=== PATIENT | male | born 1950 | race African-American/Black ===

== ENCOUNTER → 2017-01-03 | Outpatient (CLI) | payer MEDICAID ==
[2017-01-03 10:47] LABS: Basophils % (A) 1 %; CH 27.6; CHCM 31.9; Eosinophils # (A) 0.1 k/uL (0-0.7); Eosinophils % (A) 3 %; HCT 44.9 % (39.0-53.0); HDW 3.07; HGB 14.6 gm/dL (13.0-17.5); Hypochromasia Slight; Luc # (Auto) 0.18; Luc % (Auto) 4; Lymphocytes # (A) 1.7 k/uL (1.0-4.8); Lymphocytes % (A) 37 %; MCH 28.2 pg (25.0-35.0); MCHC 32.5 g/dL (31.0-37.0); Mean Platelet Volume 6.9; Monocytes # (A) 0.4 k/uL (0-1.0); Monocytes % (A) 9 %; Neutrophils # (A) 2.2 k/uL (1.3-7.7); Neutrophils % (A) 47 %; RBC 5.16 m/uL (4.30-5.90); RDW 14.9 % (11.5-15.5); WBC 4.6 k/uL (3.8-10.6); WBC (Perox) 4.72
[2017-01-03 10:53] LABS: Appearance,Urine Clear (Clear); Bilirubin,Urine Negative (Negative); Glucose,Urine (UA) Negative (Negative); Ketones,Urine Negative (Negative); Leukocyte Esterase,Urine Negative (Negative); Nitrite,Urine Negative (Negative); PH, Urine 6.5 (5.0-8.0); Particle Count 1122; Protein,Urine 2+ (Negative); RBC,Urine <1 /hpf (0-5); Specific Gravity,Urine 1.015 (1.001-1.035); UA Billing (MACRO vs. MICRO) MICRO; Urobilinogen,Urine <2.0 mg/dL (<2.0)
[2017-01-03 11:02] LABS: ALT 31 U/L (21-72); AST 26 U/L (17-59); Alkaline Phosphatase 94 U/L (38-126); Anion Gap 9 mmol/L; Blood Urea Nitrogen 16 mg/dL (9-20); Calcium 9.3 mg/dL (8.4-10.2); Carbon Dioxide 28 mmol/L (22-30); Chloride 106 mmol/L (98-107); Cholesterol 294 mg/dL (<200); Creatine Kinase 136 U/L (55-170); Glucose 116 mg/dL (74-99); HDL Cholesterol 46 mg/dL (40-60); Non-African American GFR(MDRD) 57 (>60 ml/min/1.73 sqM); Potassium 4.2 mmol/L (3.5-5.1); Sodium 143 mmol/L (137-145); Total Bilirubin 0.9 mg/dL (0.2-1.3); Total Protein 7.7 g/dL (6.3-8.2); Triglycerides 139 mg/dL (<150); Uric Acid 7.5 mg/dL (3.5-8.5)
[2017-01-03 11:32] LABS: Hemoglobin A1C 5.9 % (4.2-6.1)
== END | disposition home or self-care (01) ==
LOC: LABWHC1 10:27
PROVIDERS: ATTEND Internal Medicine
DX: I10 Essential (primary) hypertension (principal); E78.5 Hyperlipidemia, unspecified; I63.9 Cerebral infarction, unspecified
CPT/HCPCS: 36415; 80053; 80061; 81001; 82550; 83036; 84439; 84443; 84550; 85025

== ENCOUNTER → 2017-07-01 | Outpatient (CLI) | payer MEDICAID ==
[2017-07-01 10:33] LABS: Anisocytosis Slight; Basophils # (A) 0.1 k/uL (0-0.2); Basophils % (A) 1 %; CH 28.9; CHCM 32.1; Eosinophils # (A) 0.1 k/uL (0-0.7); Eosinophils % (A) 3 %; HCT 46.5 % (39.0-53.0); HDW 3.02; HGB 14.8 gm/dL (13.0-17.5); Luc # (Auto) 0.13; Luc % (Auto) 3; Lymphocytes # (A) 2.2 k/uL (1.0-4.8); Lymphocytes % (A) 43 %; MCH 28.6 pg (25.0-35.0); MCHC 31.8 g/dL (31.0-37.0); MCV 90.2 fL (80.0-100.0); Mean Platelet Volume 8.1; Monocytes # (A) 0.4 k/uL (0-1.0); Monocytes % (A) 8 %; Neutrophils # (A) 2.2 k/uL (1.3-7.7); Neutrophils % (A) 43 %; RBC 5.15 m/uL (4.30-5.90); RDW 16.3 % (11.5-15.5); WBC 5.1 k/uL (3.8-10.6); WBC (Perox) 5.07
[2017-07-01 10:43] LABS: Appearance,Urine Clear (Clear); Bilirubin,Urine Negative (Negative); Glucose,Urine (UA) Negative (Negative); Ketones,Urine Negative (Negative); Leukocyte Esterase,Urine Negative (Negative); Nitrite,Urine Negative (Negative); PH, Urine 5.5 (5.0-8.0); Particle Count 789; Protein,Urine 1+ (Negative); RBC,Urine <1 /hpf (0-5); Specific Gravity,Urine 1.013 (1.001-1.035); UA Billing (MACRO vs. MICRO) MICRO; Urobilinogen,Urine <2.0 mg/dL (<2.0); WBC,Urine 1 /hpf (0-5)
[2017-07-01 10:54] LABS: ALT 33 U/L (21-72); AST 28 U/L (17-59); Alkaline Phosphatase 103 U/L (38-126); Anion Gap 9 mmol/L; Blood Urea Nitrogen 15 mg/dL (9-20); Calcium 9.3 mg/dL (8.4-10.2); Carbon Dioxide 26 mmol/L (22-30); Chloride 105 mmol/L (98-107); Cholesterol 306 mg/dL (<200); Creatine Kinase 96 U/L (55-170); Glucose 117 mg/dL (74-99); HDL Cholesterol 43 mg/dL (40-60); Non-African American GFR(MDRD) >60 (>60 ml/min/1.73 sqM); Potassium 4.5 mmol/L (3.5-5.1); Sodium 140 mmol/L (137-145); Total Bilirubin 0.6 mg/dL (0.2-1.3); Total Protein 7.4 g/dL (6.3-8.2); Uric Acid 6.8 mg/dL (3.5-8.5)
--- NOTE | 2017-07-01 11:30 | XR ---
EXAMINATION TYPE: XR Hip Complete RT DATE OF EXAM: 07/01/2017 COMPARISON: 07/06/2016 HISTORY: Pain TECHNIQUE: 2 views submitted FINDINGS: There is no evidence of erosive change or acute fracture. There is moderate concentric narrowing the joint space. Hypertrophic change of the acetabulum can be associated with femoral acetabular impingement. Remains an area of calcification in the soft tissues adjacent to the femur. Could be either vascular or relat ed to previous muscular injury. IMPRESSION: 1. No evidence of acute fracture or dislocation. 2. Arthropathy of the hip correlate for femoral acetabular impingement. 3. Stable soft tissue calcification can be associated with myositis or history of previous trauma.
--- NOTE | 2017-07-01 11:32 | XR ---
EXAM TYPE: LUMBAR SPINE X RAY SERIES COMPARISON: 07/06/2016 HISTORY: Pain TECHNIQUE: 3 views are submitted. FINDINGS: Alignment is anatomic. The pedicles are intact. The transverse processes are intact. There is no s pondylolisthesis. Hypertrophic and degenerative change of the spine. Vascular calcifications noted. Multilevel facet arthropathy. IMPRESSION: 1. Multilevel degenerative disc disease and facet arthropathy. Findings are similar to the prior exam ..
[2017-07-01 12:50] LABS: Hemoglobin A1C 5.9 % (4.2-6.1)
== END | disposition home or self-care (01) ==
LOC: LABWHC1 09:40
PROVIDERS: ATTEND Internal Medicine
DX: M16.11 Unilateral primary osteoarthritis, right hip (principal); M79.89 Other specified soft tissue disorders; M51.36 Other intervertebral disc degeneration, lumbar region; M46.96 Unspecified inflammatory spondylopathy, lumbar region; E78.5 Hyperlipidemia, unspecified; N40.0 Benign prostatic hyperplasia without lower urinary tract symptoms; I10 Essential (primary) hypertension; Z90.89 Acquired absence of other organs
CPT/HCPCS: 84439; 80061; 80053; 83036; 82550; 84443; 84550; 85025; 81001; 82306; 72100; 73502; 36415; G0103

== ENCOUNTER → 2017-11-23 | Outpatient (CLI) | payer MEDICAID ==
[2017-11-23 11:54] LABS: Basophils % (A) 1 %; Calcium 9.5 mg/dL (8.4-10.2); Eosinophils # (A) 0.1 k/uL (0-0.7); Eosinophils % (A) 3 %; HCT 46.6 % (39.0-53.0); HGB 14.7 gm/dL (13.0-17.5); Lymphocytes # (A) 2.3 k/uL (1.0-4.8); Lymphocytes % (A) 42 %; MCH 26.6 pg (25.0-35.0); MCHC 31.6 g/dL (31.0-37.0); MCV 84.2 fL (80.0-100.0); Magnesium 2.4 mg/dL (1.6-2.3); Mean Platelet Volume 7.4; Monocytes # (A) 0.4 k/uL (0-1.0); Monocytes % (A) 8 %; Neutrophils # (A) 2.4 k/uL (1.3-7.7); Neutrophils % (A) 44 %; Platelet Count 269 k/uL (150-450); Potassium 3.9 mmol/L (3.5-5.1); RBC 5.53 m/uL (4.30-5.90); RDW 14.4 % (11.5-15.5); Total Bilirubin 0.8 mg/dL (0.2-1.3); Total Protein 7.1 g/dL (6.3-8.2); WBC 5.5 k/uL (3.8-10.6)
[2017-11-23 18:17] LABS: Hemoglobin A1C 5.9 % (4.0-6.0)
== END | disposition home or self-care (01) ==
LOC: LABWHC1 11:09
PROVIDERS: ATTEND Internal Medicine
DX: E78.5 Hyperlipidemia, unspecified (principal); I10 Essential (primary) hypertension
CPT/HCPCS: 36415; 80053; 80061; 82550; 83036; 83735; 84443; 85025

== ENCOUNTER → 2018-02-20 | Outpatient (CLI) | payer MEDICAID ==
[2018-02-20 11:39] LABS: Basophils % (A) 1 %; Eosinophils # (A) 0.2 k/uL (0-0.7); Eosinophils % (A) 3 %; HCT 44.6 % (39.0-53.0); HGB 14.5 gm/dL (13.0-17.5); Lymphocytes # (A) 2.1 k/uL (1.0-4.8); Lymphocytes % (A) 39 %; MCH 27.7 pg (25.0-35.0); MCHC 32.5 g/dL (31.0-37.0); MCV 85.1 fL (80.0-100.0); Mean Platelet Volume 6.9; Monocytes # (A) 0.4 k/uL (0-1.0); Monocytes % (A) 8 %; Neutrophils # (A) 2.6 k/uL (1.3-7.7); Neutrophils % (A) 46 %; Platelet Count 227 k/uL (150-450); RBC 5.24 m/uL (4.30-5.90); RDW 15.5 % (11.5-15.5); WBC 5.6 k/uL (3.8-10.6)
[2018-02-20 11:46] LABS: Appearance,Urine Clear (Clear); Bilirubin,Urine Negative (Negative); Blood,Urine Negative (Negative); Color,Urine Yellow; Glucose,Urine (UA) Negative (Negative); Ketones,Urine Negative (Negative); Leukocyte Esterase,Urine Negative (Negative); Mucus,Urine Rare /hpf; Nitrite,Urine Negative (Negative); PH, Urine 6.5 (5.0-8.0); Protein,Urine 2+ (Negative); Specific Gravity,Urine 1.016 (1.001-1.035); Urobilinogen,Urine <2.0 mg/dL (<2.0); WBC,Urine <1 /hpf (0-5)
[2018-02-20 11:56] LABS: Albumin 4.1 g/dL (3.5-5.0); Calcium 9.1 mg/dL (8.4-10.2); Magnesium 2.3 mg/dL (1.6-2.3); Potassium 3.9 mmol/L (3.5-5.1); Total Bilirubin 0.6 mg/dL (0.2-1.3); Uric Acid 6.9 mg/dL (3.5-8.5)
[2018-02-20 12:11] LABS: T4, Free (Free Thyroxine) 0.94 ng/dL (0.78-2.19)
== END | disposition home or self-care (01) ==
LOC: LABWHC1 11:04
PROVIDERS: ATTEND Internal Medicine
DX: E78.5 Hyperlipidemia, unspecified (principal); I10 Essential (primary) hypertension
CPT/HCPCS: 36415; 80053; 80061; 81001; 82550; 83036; 83735; 84439; 84443; 84550; 85025

== ENCOUNTER → 2018-04-28 | Outpatient (CLI) | payer MEDICAID ==
[2018-04-28 13:00] LABS: ALT 45 U/L (21-72); AST 29 U/L (17-59); Cholesterol 198 mg/dL (<200); Creatine Kinase 107 U/L (55-170); HDL Cholesterol 46 mg/dL (40-60); LDL Cholesterol,Calculated 99 mg/dL (0-99); Triglycerides 266 mg/dL (<150)
== END | disposition home or self-care (01) ==
LOC: LABWHC1 12:01
PROVIDERS: ATTEND Internal Medicine
DX: E78.5 Hyperlipidemia, unspecified (principal)
CPT/HCPCS: 36415; 80061; 82550; 84450; 84460

== ENCOUNTER → 2018-07-06 | Outpatient (CLI) | payer MEDICAID ==
[2018-07-06 10:27] LABS: Basophils % (A) 1 %; Eosinophils # (A) 0.2 k/uL (0-0.7); Eosinophils % (A) 3 %; HCT 42.9 % (39.0-53.0); Lymphocytes % (A) 35 %; MCH 28.1 pg (25.0-35.0); MCHC 32.7 g/dL (31.0-37.0); Monocytes # (A) 0.4 k/uL (0-1.0); Monocytes % (A) 7 %; Neutrophils % (A) 53 %; Platelet Count 230 k/uL (150-450); RBC 4.99 m/uL (4.30-5.90); RDW 15.2 % (11.5-15.5); WBC 5.7 k/uL (3.8-10.6)
[2018-07-06 11:39] LABS: Appearance,Urine Clear (Clear); Bilirubin,Urine Negative (Negative); Blood,Urine Negative (Negative); Color,Urine Yellow; Glucose,Urine (UA) Negative (Negative); Ketones,Urine Negative (Negative); Leukocyte Esterase,Urine Negative (Negative); Mucus,Urine Rare /hpf; Nitrite,Urine Negative (Negative); Protein,Urine 2+ (Negative); RBC,Urine 1 /hpf (0-5); Specific Gravity,Urine 1.021 (1.001-1.035); Squamous Epithelial Cell,Urine <1 /hpf (0-4); Urobilinogen,Urine <2.0 mg/dL (<2.0); WBC,Urine 1 /hpf (0-5)
[2018-07-06 15:52] LABS: Albumin 4.3 g/dL (3.80-4.90); Albumin/Globulin Ratio 1.72 (1.20-2.10); Anion Gap 4.9 mmol/L (4.00-12.00); Calcium 9.4 mg/dL (8.7-10.3); Carbon Dioxide 29.1 mmol/L (21.6-31.8); Globulin 2.5 g/dL (2.1-3.7); LDL Cholesterol,Calculated 119.6 mg/dL (0.0-131.0); Magnesium 2.4 mg/dL (1.5-2.4); Total Bilirubin 0.6 mg/dL (0.3-1.2); Total Protein 6.8 g/dL (6.2-8.2); Uric Acid 6.3 mg/dL (3.7-8.7); VLDL Calculation 35.4 mg/dL (5.00-40.00)
[2018-07-06 18:51] LABS: Hemoglobin A1C 6.1 % (4.0-6.0)
== END | disposition home or self-care (01) ==
LOC: LABWHC1 09:51
PROVIDERS: ATTEND Internal Medicine
DX: Z00.00 Encounter for general adult medical examination without abnormal findings (principal); I10 Essential (primary) hypertension; E78.5 Hyperlipidemia, unspecified; N40.0 Benign prostatic hyperplasia without lower urinary tract symptoms
CPT/HCPCS: 36415; 80053; 80061; 81001; 82550; 83036; 83735; 84153; 84439; 84443; 84550; 85025

== ENCOUNTER → 2018-12-11 | Outpatient (CLI) | payer MEDICAID ==
[2018-12-11 13:29] LABS: Basophils % (A) 1 %; Eosinophils # (A) 0.2 k/uL (0-0.7); Eosinophils % (A) 3 %; HCT 44.2 % (39.0-53.0); HGB 14.5 gm/dL (13.0-17.5); Lymphocytes # (A) 1.6 k/uL (1.0-4.8); Lymphocytes % (A) 34 %; MCH 27.9 pg (25.0-35.0); MCHC 32.8 g/dL (31.0-37.0); Mean Platelet Volume 7.1; Monocytes # (A) 0.4 k/uL (0-1.0); Monocytes % (A) 7 %; Neutrophils # (A) 2.6 k/uL (1.3-7.7); Neutrophils % (A) 54 %; Platelet Count 282 k/uL (150-450); RDW 14.7 % (11.5-15.5); WBC 4.9 k/uL (3.8-10.6)
[2018-12-11 13:38] LABS: Prothrombin Time 10.4 sec (9.0-12.0)
[2018-12-11 19:34] LABS: Albumin 4.4 g/dL (3.80-4.90); Albumin/Globulin Ratio 1.76 (1.60-3.17); Anion Gap 9.3 mmol/L (4.00-12.00); Calcium 9.2 mg/dL (8.7-10.3); Carbon Dioxide 27.7 mmol/L (21.6-31.8); Globulin 2.5 g/dL (1.6-3.3); Potassium 4.1 mmol/L (3.5-5.5); Total Bilirubin 0.7 mg/dL (0.2-1.2); Total Protein 6.9 g/dL (6.2-8.2)
== END | disposition home or self-care (01) ==
LOC: LABWHC1 12:09
PROVIDERS: ATTEND Internal Medicine Cardiovascular Disease
DX: I48.91 Unspecified atrial fibrillation (principal); R94.39 Abnormal result of other cardiovascular function study
CPT/HCPCS: 36415; 80053; 85025; 85610

== ENCOUNTER → 2018-12-11 | Outpatient (CLI) | payer MEDICAID ==
--- NOTE | 2018-12-11 11:52 | P.STRESS ---
- Stress Test Note Stress Test Results/Findings: Exam Performed: stress test Exam Date: 12/11/18 Reason for Exam: CHEST PAIN Height: 6 ft Weight: 92.533 kg Protocol: RORY Stage: 3 Duration of Exercise: 6:45 Resting Heart Rate: 80 Resting Blood Pressure: 140/106 Maximum Achieved Heart Rate: 116 Maximum Achieved Blood Pressure: 183/97 85% PMHR: 128 100% PMHR: 151 METS: 8.1 Technologist Comment: Stress Test Results/Findings: This is a 68-year-old gentleman with history of hypertension hypercholesterolemia, previous CVA being evaluated for symptoms of chest pain and shortness of breath. Stress data: Baseline EKG showed sinus rhythm with normal [place] interval and QRS duration. Blood pressure at rest is 140/106 with pulse rate of 80. Patient walked on a Rory protocol for 6 minutes and 45 seconds achieving a maximal heart rate of 12/12/2015 with a blood pressure 183/97. Patient to start developed about 1 mm horizontal downsloping STs segment depression in inferolateral leads associated with chest pain. The changes persisted for 6-7 minutes in the post exercise period. The chest pain resolved with rest. Final impression #1. Strongly positive stress test at low workloads. #2 patient had symptoms of chest pain size to of angina, relieved with rest. #3. No arrhythmias noted
--- NOTE | 2018-12-11 12:14 | ECHOF ---
Referral Reason:cp, positive stress test MEASUREMENTS -------- HEIGHT: 182.9 cm WEIGHT: 92.5 kg BP: 140/106 RVIDd: 3.1 cm (< 3.3) IVSd: 1.4 cm (0.6 - 1.1) LVIDd: 4.8 cm (3.9 - 5.3) LVPWd: 1.4 cm (0.6 - 1.1) IVSs: 1.9 cm LVIDs: 2.7 cm LVPWs: 2.0 cm LA Diam: 3.9 cm (2.7 - 3.8) LAESV Index (A-L): 20.80 ml/m Ao Diam: 3.8 cm (2.0 - 3.7) AV Cusp: 3.0 cm (1.5 - 2.6) MV EXCURSION: 16.920 mm (> 18.000) MV EF SLOPE: 41 mm/s (70 - 150) EPSS: 0.5 cm MV E Eliezer: 0.80 m/s MV DecT: 227 ms MV A Eliezer: 0.90 m/s MV E/A Ratio: 0.89 RAP: 5.00 mmHg RVSP: 26.36 mmHg FINDINGS -------- Sinus rhythm. This was a technically good study. The left ventricular size is normal. There is moderate concentric left ventricular hypertrophy. O verall left ventricular systolic function is normal with, an EF between 60 - 65 %. Severe asymmetri c septal hypertrophy with septal thickness 2.0 - 2.9 cm. The right ventricle is normal in size. Normal LA size by volume 22+/-6 ml/m2. The right atrium is normal in size. The aortic valve is trileaflet and appears structurally normal. The mitral valve is normal. Mild tricuspid regurgitation present. Right ventricular systolic pressure is normal at < 35 mmHg. Trace/mild (physiologic) pulmonic regurgitation. The aortic root is dilated measuring 3.8cm. IVC Not well visulized. There is no pericardial effusion. CONCLUSIONS -------- 1. Sinus rhythm. 2. This was a technically good study. 3. The left ventricular size is normal. 4. There is moderate concentric left ventricular hypertrophy. 5. Overall left ventricular systolic function is normal with, an EF between 60 - 65 %. 6. Severe asymmetric septal hypertrophy with septal thickness 2.0 - 2.9 cm. 7. The right ventricle is normal in size. 8. Normal LA size by volume 22+/-6 ml/m2. 9. The right atrium is normal in size. 10. The aortic valve is trileaflet and appears structurally normal. 11. The mitral valve is normal. 12. Mild tricuspid regurgitation present. 13. Right ventricular systolic pressure is normal at < 35 mmHg. 14. Trace/mild (physiologic) pulmonic regurgitation. 15. The aortic root is dilated measuring 3.8cm. 16. IVC Not well visulized. 17. There is no pericardial effusion. MANAGER STORAGE: Maura Mueller RDCS
--- NOTE | 2018-12-12 13:17 | EST ---
Stress Test Results/Findings: Exam Performed: stress test Exam Date: 12/11/18 Reason for Exam: CHEST PAIN Height: 6 ft Weight: 92.533 kg Protocol: RORY Stage: 3 Duration of Exercise: 6:45 Resting Heart Rate: 80 Resting Blood Pressure: 140/106 Maximum Achieved Heart Rate: 116 Maximum Achieved Blood Pressure: 183/97 85% PMHR: 128 100% PMHR: 151 METS: 8.1 Technologist Comment: Stress Test Results/Findings: This is a 68-year-old gentleman with history of hypertension hypercholesterolemia, previous CVA being evaluated for symptoms of chest pain and shortness of breath. Stress data: Baseline EKG showed sinus rhythm with normal NE interval and QRS duration. Blood pressure at rest is 140/106 with pulse rate of 80. Patient walked on a Rory protocol for 6 minutes and 45 seconds achieving a maximal heart rate of 12/12/2015 with a blood pressure 183/97. Patient to start developed about 1 mm horizontal downsloping STs segment depression in inferolateral leads associated with chest pain. The changes persisted for 6-7 minutes in the post exercise period. The chest pain resolved with rest. Final impression #1. Strongly positive stress test at low workloads. #2 patient had symptoms of chest pain suggestive of angina, relieved with rest. #3. No arrhythmias noted MTDD
== END | disposition home or self-care (01) ==
LOC: RADNMMAIN 10:41
PROVIDERS: ATTEND Nurse Practitioner Family
DX: I07.1 Rheumatic tricuspid insufficiency (principal); R07.9 Chest pain, unspecified
CPT/HCPCS: 93017; 93306

== ENCOUNTER 2018-12-13 07:48 | Day surgery (SDC) | payer MEDICAID ==
[~2018-12-13 07:48] MED LIST: ALPRAZolam 0.25 MG TAB PO PRN; ALPRAZolam 0.5 MG TAB PO PRN; ASPIRIN 325 MG TAB PO STA; ATORVASTATIN 80 MG TAB PO STA; NITROGLYCERIN SL TABS 0.4 MG TAB SUBLINGUAL PRN; SODIUM CHLORIDE 0.9% 1,000 ML in EMPTY BAG 1 BAG IV ONE
--- NOTE | 2018-12-13 08:34 | P.HPCAR ---
History of Present Illness H&P Date: 12/13/18 This is a 68-year-old gentleman with history of hypertension and history of paroxysmal atrial fibrillation and also previous CVA has been experiencing increasing shortness of breath and chest pains. Patient was referred for outpatient stress test. Patient developed chest pain and EKG changes size to of ischemia at low workloads. The symptoms are resolved with rest. Because of his risk factor profile and strongly positive stress test, patient is advised to have a cardiac catheterization. Patient was explained the risks and benefits of the procedure which she fully understood and accepted. Patient is advised to continue with aspirin, beta maricel and nitroglycerin Review of Systems As per the chart Physical Exam GENERAL EXAM: Patient is alert and oriented and doesn't appear to be in any acute distress HEENT: Normocephalic. Normal reaction of pupils, equal size, normal range of extraocular motion. No erythema or exudates in the throat. NECK: No masses, no nuchal rigidity. CHEST: No chest wall deformity. LUNGS: Equal air entry with no crackles or wheeze. HEART: S1 and S2 normal with no audible mumurs or gallops. Regular rhythm, femorals equal on both sides.. ABDOMEN: No hepatosplenomegaly, normal bowel sounds, no guarding or rigidity. SKIN: No rashes CENTRAL NERVOUS SYSTEM: No focal deficits. EXTREMITIES: No cyanosis, clubbing or edema. Past Medical History Past Medical History: Chest Pain / Angina, CVA/TIA, GERD/Reflux, Hyperlipidemia, Hypertension, Osteoarthritis (OA) Additional Past Medical History / Comment(s): hx glaucoma-had trabeculoplasty laser sx, cva 2010, History of Any Multi-Drug Resistant Organisms: None Reported Past Surgical History: Back Surgery, Heart Catheterization, Hernia Repair, Orthopedic Surgery Additional Past Surgical History / Comment(s): trabeculoplasty for glaucoma, lt inguinal hernia repair, rt ankle orif, bunionectomy, lt WRIST sx HAD A PEICE OF BONE REMOVED, CHASITY knee arthrosocpy, rt rotator cuff, RT KNEE MENISCUS REPAIR. right lower lumbar sx 12/2014 Past Anesthesia/Blood Transfusion Reactions: Postoperative Nausea & Vomiting (PONV) Additional Past Anesthesia/Blood Transfusion Reaction / Comment(s): after hernia sx had hives not sure from what. Smoking Status: Never smoker - Past Family History Brother(s) Family Medical History: Cancer Additional Family Medical History / Comment(s): 1 brother had prostate cancer and one had oral cancer. Father Family Medical History: Hypertension, Myocardial Infarction ([place]), Renal Disease Additional Family Medical History / Comment(s): FROM KIDNEY FAILURE Mother Family Medical History: Coronary Artery Disease (CAD), Diabetes Mellitus Additional Family Medical History / Comment(s): QUAD [employer]PASS Results Current Medications Generic Name Dose Route Start Last Admin Trade Name Freq PRN Reason Stop Dose Admin Alprazolam 0.25 mg 12/13/18 06:06 Xanax PO Q6HR PRN Mild Anxiety Alprazolam 0.5 mg 12/13/18 06:06 Xanax PO Q6HR PRN Moderate Anxiety Sodium Chloride 1,000 ml/ IV 1,000 mls @ 92.533 mls/hr 12/13/18 06:06 Solution IV 12/13/18 16:54 .[id number] ONE 1 ML/KG/HR Nitroglycerin 0.4 mg 12/13/18 06:06 Nitrostat SUBLINGUAL Q5M PRN Chest Pain EKG Interpretations (text) Sinus rhythm with mild nonspecific ST-T wave normalities Assessment and Plan (1) Positive cardiac stress test Current Visit: Yes Status: Acute Code(s): R94.39 - ABNORMAL RESULT OF OTHER CARDIOVASCULAR FUNCTION STUDY SNOMED Code(s): 649292460 (2) Chest pain Current Visit: No Status: Acute Code(s): R07.9 - CHEST PAIN, UNSPECIFIED SNOMED Code(s): 08008765 (3) Essential hypertension Current Visit: Yes Status: Acute Code(s): I10 - ESSENTIAL (PRIMARY) HYPERTENSION SNOMED Code(s): 15791451 (4) Hyperlipidemia Current Visit: Yes Status: Acute Code(s): E78.5 - HYPERLIPIDEMIA, UNSPECIFIED SNOMED Code(s): 22091263 Plan: We will proceed with cardiac catheterization for definitive diagnosis. Patient is explained the risks and benefits of the procedure. Further recommendations depend upon the findings on the cardiac cath. Echocardiogram showed normal LV function
[2018-12-13] MEDS ORDERED: SODIUM CHLORIDE 0.9% 1,000 ML IV ONE (08:37)
[2018-12-13] MEDS ORDERED: LIDOCAINE 1% INJ 10MG/ML (20 ML MDV) ONE (09:24)
[2018-12-13] MEDS ORDERED: VERAPAMIL 2.5 MG/ML 2 ML AMP ONE ×2 (09:24→09:59)
[2018-12-13] MEDS ORDERED: HEPARIN SODIUM 1,000 UN/ML (10ML VL) ONE (09:24)
[2018-12-13] MEDS ORDERED: fentaNYL (PF) 50 MCG/ML 2 ML AMP ONE (09:24)
[2018-12-13] MEDS ORDERED: fentaNYL (PF) 50 MCG/ML 2 ML AMP IV ONE ×2 (09:35→10:39)
[2018-12-13] MEDS ORDERED: MIDAZOLAM 2 MG/2 ML VIAL IV ONE (09:35)
[2018-12-13] MEDS ORDERED: LIDOCAINE 1% INJ 10MG/ML (20 ML MDV) SQ ONE (09:36)
[2018-12-13] MEDS ORDERED: VERAPAMIL SYRINGE (5 MG/10 ML) INTRAARTER ONE (09:39)
--- NOTE | 2018-12-13 10:13 | P.PCN ---
Date of Procedure: 12/13/18 Preoperative Diagnosis: Chest pain and positive stress test Postoperative Diagnosis: Critical 2 vessel disease Description of Procedure: HISTORY: This is a 68-year-old gentleman with history of hypertension, previous CVA and hypercholesterolemia who has been experiencing chest pain and shortness of breath. Patient was sent here for a stress test and patient had a positive findings at low loads. Patient is advised to have a cardiac catheterization for definite diagnosis. CONSENT:I have discussed the risks, benefits and alternative therapies for the above-mentioned procedure and for both sedation/analgesia as well as necessary blood product administration, if indicated, as they pertain to this patient. The patient has indicated understanding and acceptance of the risks and procedures discussed. PROCEDURE: Patient was brought to the lab in a fasting state. Patient was given some IV sedation. The right groin is infiltrated with lidocaine and right femoral artery was entered using Seldinger technique. A 6-Bulgarian catheter was left in place and selective coronary arteriography was performed. Patient tolerated the procedure well. Femoral angiogram was performed and Angio-Seal was applied for hemostasis. No immediate complications were noted and patient was transferred to [facility] in a stable condition Conscious Sedation: Versed 1mg Fentanyl 25 g Duration 22minutes HEMODYNAMICS: The aortic pressure is 150/70. The left ventricle end-diastolic pressure is about 12-16. There was no gradient across the aortic valve SELECTIVE CORONARY ARTERIOGRAPHY: LEFT MAIN: Long and patent without any significant obstructive disease THE LEFT ANTERIOR DESCENDING CORONARY ARTERY:. This is a moderate caliber vessel with a long stenosis involving the midportion of the first diagonal branch with them areas of about 95% stenosis. Patient did mid and distal LAD appears to be small to moderate caliber with mild diffuse plaque. There are collaterals from right coronary artery filling the distal LAD. Distal LAD near the apex and also has about 80% stenosis THE LEFT CIRCUMFLEX AND IS CORONARY ARTERY:. This is a moderate caliber vessel with about 70% stenosis proximally and there is also about 70% to 80% stenosis in the midportion. He did use a small first OM and a moderate caliber second OM branch which have diffuse disease THE RIGHT CORONARY ARTERY:. This is a dominant vessel and appears to be free of any occlusive disease. Gives rise to good-sized PDA and PLV. There are collaterals from the right coronary system to the left LEFT VENTRICULOGRAPHY: Not performed FINAL IMPRESSION:. Prolonged critical stenosis involving the proximal to mid LAD. There is mild diffuse disease involving the mid and distal LAD involving a significant lesion in near the apex. There is also significant lesion involving the proximal and mid circumflex with a diffuse disease involving the OM branches. The right coronary artery appears to be free of any significant focal lesions PLAN: Stent placement of the LAD followed by stent placement of the circumflex. Maximum medical therapy PROGNOSIS: Guarded
[2018-12-13] MEDS ORDERED: BIVALIRUDIN BOLUS 250 MG/50 ML IV ONE (11:14)
[2018-12-13] MEDS ORDERED: BIVALIRUDIN 250 MG in SODIUM CHLORIDE 0.9% 50 ML IV ONE (11:15)
[2018-12-13] MEDS ORDERED: NITROGLYCERIN 1000MCG/10ML SYRINGE INTRACORON ONE (11:26)
[2018-12-13] MEDS ORDERED: IOPAMIDOL-370 150ML BTL INJ ONE (11:30)
[2018-12-13] MEDS ORDERED: CLOPIDOGREL 75 MG TAB ONE (11:44)
[2018-12-13] MEDS ORDERED: IOPAMIDOL-370 100ML BTL INJ ONE (11:53)
[2018-12-13] MEDS ORDERED: CLOPIDOGREL 75 MG TAB PO ONE (11:54)
--- NOTE | 2018-12-13 12:29 | CC ---
CARDIAC CATHETERIZATION REPORT DATE OF SERVICE: 12/13/2018 PROCEDURE: PTCA and stenting of proximal LAD with a drug-eluting stent. PERFORMED BY: Dr. Diego Grimaldo. Moderate conscious sedation time was 23 minutes. Patient was administered Versed and oxygen saturation. Hemodynamics and EKG were monitored closely. CLINICAL INFORMATION: Mr. José Manuel Panchal is a 68-year-old gentleman with history of hypertension, Hyperlipidemia, and also history of some paroxysmal atrial fibrillation. He came into the hospital with an abnormal stress test at the low exercise level and was advised cardiac cath by Dr. Aguillon. Procedure was performed by Dr. Aguillon from right radial approach and he was found to have a significant proximal LAD lesion of about 90% involving a long segment and also had a moderate to severe lesion involving the obtuse marginal branch of circumflex with mild to moderate disease in the proximal circumflex. He was advised intervention of the LAD that was performed in the same setting. PROCEDURE NOTE: The existing 6-Vincentian introducer in the right radial artery was used to perform the procedure. I used a 3.5 left Abdon guide catheter to cannulate the left coronary artery. A run-through wire was used to cross the lesion wire was kept distally. Predilatation was performed with a 2.5 caliber 20 mm long NC Trek balloon. I then deployed a 28 mm long 2.75 caliber Xience stent at 13 atmospheres. Patient had mild chest discomfort and precordial ST elevation. Excellent angiographic result without complication was achieved. He received 600 mg of Plavix orally. He also received Angiomax bolus and infusion as per protocol. Excellent angiographic result without complication was achieved. The sheath was taken out and a TR band applied as per protocol. With the saturation in the fingers of the right hand of 95%. Excellent angiographic result without complication was achieved and I expect the patient will be discharged soon. MMODL / IJN: [id number] / [place]
[2018-12-13] MEDS ORDERED: ZOLPIDEM 5 MG TAB PO PRN (13:12)
[2018-12-13] MEDS ORDERED: MAG HYDROX/AL HYDROX/SIMETH 30 ML CUP PO PRN (13:12)
[2018-12-13] MEDS ORDERED: ATROPINE SULFATE 0.1 MG/ML 10ML SYRINGE IV PRN (13:12)
[2018-12-13] MEDS ORDERED: RX INFO: IV CONTRAST WAS GIVEN 1 EACH MISC MISCELLANE PRN (13:12)
[2018-12-13 17:05] VITALS: BMI 27.8
[2018-12-13] MEDS: SODIUM CHLORIDE 0.9% 1,000 ML IV SCH ×2 (18:12→18:14)
[2018-12-13] MEDS: amLODIPine 5 MG TAB PO SCH (20:21)
[2018-12-13] MEDS ORDERED: ATORVASTATIN 80 MG TAB PO SCH (21:00)
[2018-12-14 02:58] VITALS: TEMP 97.4
[2018-12-14] MEDS: SODIUM CHLORIDE 0.9% 1,000 ML IV SCH (05:59)
[2018-12-14] MEDS ORDERED: PANTOPRAZOLE 40 MG TABLET PO SCH (07:30)
[2018-12-14 07:43] LABS: Basophils % (A) 0 %; Eosinophils # (A) 0.2 k/uL (0-0.7); Eosinophils % (A) 3 %; HCT 40.5 % (39.0-53.0); HGB 13.5 gm/dL (13.0-17.5); Lymphocytes # (A) 1.9 k/uL (1.0-4.8); Lymphocytes % (A) 33 %; MCH 27.5 pg (25.0-35.0); MCHC 33.4 g/dL (31.0-37.0); MCV 82.4 fL (80.0-100.0); Mean Platelet Volume 7.2; Monocytes # (A) 0.5 k/uL (0-1.0); Monocytes % (A) 9 %; Neutrophils % (A) 53 %; Platelet Count 265 k/uL (150-450); Poikilocytosis Slight; RBC 4.91 m/uL (4.30-5.90); RDW 15.2 % (11.5-15.5); WBC 5.8 k/uL (3.8-10.6)
[2018-12-14 08:01] LABS: Anion Gap 8 mmol/L; Blood Urea Nitrogen 14 mg/dL (9-20); Calcium 9.3 mg/dL (8.4-10.2); Carbon Dioxide 26 mmol/L (22-30); Chloride 106 mmol/L (98-107); Glucose 120 mg/dL (74-99); Potassium 3.8 mmol/L (3.5-5.1); Sodium 140 mmol/L (137-145)
[2018-12-14] MEDS: amLODIPine 5 MG TAB PO SCH (08:51)
[2018-12-14] MEDS ORDERED: SALMON OIL PO SCH (09:00)
[2018-12-14] MEDS ORDERED: ASPIRIN 325 MG TAB PO SCH (09:00)
[2018-12-14] MEDS ORDERED: RIVAROXABAN 10 MG TAB PO SCH (09:00)
[2018-12-14] MEDS ORDERED: NON-FORMULARY DRUG (Ubidecarenone [Co Q-10] 100 MG) PO SCH (09:00)
[2018-12-14] MEDS ORDERED: METOPROLOL SUCCINATE (ER) 25 MG TAB.ER.24H PO SCH (09:00)
--- NOTE | 2018-12-14 11:29 | P.DS ---
Providers Date of admission: 12/13/2018 Attending physician: Crystal Aguillon Consults: 12/13/18 13:12 Consult Physician Routine Consulting Provider: [facility] Consult Reason/Comments: Post Interventional patient Do you want consulting provider notified?: Already Contacted Primary care physician: Randy Allenher - Discharge Diagnosis(es) (1) Positive cardiac stress test Current Visit: Yes Status: Acute (2) Chest pain Current Visit: No Status: Acute (3) Essential hypertension Current Visit: Yes Status: Acute (4) Hyperlipidemia Current Visit: Yes Status: Acute (5) CAD (coronary artery disease) Current Visit: Yes Status: Acute (6) History of placement of stent in LAD coronary artery Current Visit: Yes Status: Acute (7) Status post coronary artery stent placement Current Visit: Yes Status: Acute Hospital Course: This is a 68-year-old gentleman with history of hypertension and previous CVA who recently was evaluated by stress test. The stress test was positive for ischemia at low workloads. Cardiac catheterization yesterday from the right radial approach showed pedicle lesion involving mid LAD involving a long segment and also significant lesions in the circumflex system. Patient had stent placement of the mid LAD. Patient is feeling much better today. Denies any chest pain or shortness of breath. His puncture site seemed to be healing well without any hematoma or ecchymosis. Radial pulses are well felt. Patient's blood works a stable. Patient is being discharged home. Patient will continue baby aspirin, Plavix and Xarelto 10 mg daily. Rest of the medication to be continued. Follow-up in the office in one week. Patient will be scheduled for staged stent placement of circumflex in the near future. Plan - Discharge Summary Discharge Rx Participant: No New Discharge Prescriptions: New Atorvastatin [Lipitor] 80 mg PO HS #30 tab Nitroglycerin Sl Tabs [Nitrostat] 0.4 mg SUBLINGUAL Q5M PRN tab PRN Reason: Chest Pain Clopidogrel [Plavix] 75 mg PO DAILY #30 tab Rivaroxaban [Xarelto] 10 mg PO DAILY #30 tab Continue L.acid/L.casei/B.bif/B.selina/Fos [Probiotic Blend Capsule] 1 cap PO DAILY Multivitamins, Thera [Multivitamin (formulary)] 1 tab PO DAILY@1200 Omeprazole [PriLOSEC] 20 mg PO AC-BRKFST Ubidecarenone [Co Q-10] 100 mg PO DAILY [place] 1 cap PO DAILY amLODIPine [Norvasc] 5 mg PO BID #14 tab Metoprolol Succinate (ER) [Toprol XL] 25 mg PO DAILY Nitroglycerin Sl Tabs [Nitrostat] 0.4 mg SUBLINGUAL Q5M PRN PRN Reason: Angina Aspirin 81 mg PO ONCE Discontinued Pravastatin Sodium [Pravachol] 40 mg PO HS Rivaroxaban [Xarelto] 20 mg PO DAILY Discharge Medication List L.acid/L.casei/B.bif/B.selina/Fos [Probiotic Blend Capsule] 1 cap PO DAILY 01/06/15 [History] Multivitamins, Thera [Multivitamin (formulary)] 1 tab PO DAILY@1200 01/06/15 [History] Omeprazole [PriLOSEC] 20 mg PO AC-BRKFST 01/06/15 [History] [place] [employer] 1 cap PO DAILY 01/06/15 [History] Ubidecarenone [Co Q-10] 100 mg PO DAILY 01/06/15 [History] amLODIPine [Norvasc] 5 mg PO BID #14 tab 01/04/16 [Rx] Metoprolol Succinate (ER) [Toprol XL] 25 mg PO DAILY 12/11/18 [History] Nitroglycerin Sl Tabs [Nitrostat] 0.4 mg SUBLINGUAL Q5M PRN 12/11/18 [History] Aspirin 81 mg PO ONCE 12/13/18 [History] Atorvastatin [Lipitor] 80 mg PO HS #30 tab 12/14/18 [Rx] Clopidogrel [Plavix] 75 mg PO DAILY #30 tab 12/14/18 [Rx] Nitroglycerin Sl Tabs [Nitrostat] 0.4 mg SUBLINGUAL Q5M PRN tab 12/14/18 [Rx] Rivaroxaban [Xarelto] 10 mg PO DAILY #30 tab 12/14/18 [Rx] Follow up Appointment(s)/Referral(s): Crystal Aguillon MD [STAFF PHYSICIAN] - 1 Week (Office to call with follow up appointment/procedure date for next heart cath.) Patient Instructions/Handouts: Heart Healthy Diet (DC), Coronary Intravascular Stent Placement (DC) Discharge Disposition: HOME SELF-CARE
[2018-12-14] MEDS ORDERED: MULTIVITAMINS, THERA 1 EACH TAB PO SCH (12:00)
[2018-12-14] MEDS ORDERED: LACTOBACILLUS ACIDOPH & BULGAR 1 EACH PACKET PO SCH (12:00)
[2018-12-14] MEDS ORDERED: CLOPIDOGREL 75 MG TAB PO SCH (12:00)
[2018-12-14 12:29] VITALS: BP 125/85; PULSE 70; RESP 17
== END 2018-12-14 13:43 | disposition home or self-care (01) ==
LOC: CATHCVL 07:48 → 3SCARD 12:00 → CATHCVL 12-14 13:43
PROVIDERS: ATTEND Internal Medicine Cardiovascular Disease
DX: I25.110 Atherosclerotic heart disease of native coronary artery with unstable angina pectoris (principal); I10 Essential (primary) hypertension; E78.5 Hyperlipidemia, unspecified; I48.0 Paroxysmal atrial fibrillation; Z86.73 Personal history of transient ischemic attack (TIA), and cerebral infarction without residual deficits; Z82.49 Family history of ischemic heart disease and other diseases of the circulatory system; E78.00 Pure hypercholesterolemia, unspecified; Z79.01 Long term (current) use of anticoagulants; Z79.899 Other long term (current) drug therapy; Z88.8 Allergy status to other drugs, medicaments and biological substances; M19.90 Unspecified osteoarthritis, unspecified site; K21.9 Gastro-esophageal reflux disease without esophagitis
CPT/HCPCS: 93458; 80048; 85025; C9600; C1887; C1725; C1769; C1894; C1874; J2250; J2001; J3010; J0583; J1644; Q9967 ×2

== ENCOUNTER → 2019-01-08 | Outpatient (CLI) | payer MEDICAID ==
[2019-01-08 19:26] LABS: Albumin 4.3 g/dL (3.80-4.90); Albumin/Globulin Ratio 1.87 (1.60-3.17); Bilirubin, Conjugated 0.2 mg/dL (0.20-0.40); Bilirubin,Unconjugated 0.5 mg/dL; Globulin 2.3 g/dL (1.6-3.3); LDL Cholesterol,Calculated 108.8 mg/dL (0.0-131.0); Total Bilirubin 0.7 mg/dL (0.2-1.2); Total Protein 6.6 g/dL (6.2-8.2); VLDL Calculation 25.2 mg/dL (5.00-40.00)
== END ==
LOC: LABWHC1 11:52
PROVIDERS: ATTEND Internal Medicine Cardiovascular Disease
DX: E78.5 Hyperlipidemia, unspecified (principal); I25.10 Atherosclerotic heart disease of native coronary artery without angina pectoris
CPT/HCPCS: 36415; 80061; 80076

== ENCOUNTER 2019-01-12 06:32 | Day surgery (SDC) | payer MEDICAID ==
[2019-01-12] MEDS ORDERED: NITROGLYCERIN SL TABS 0.4 MG TAB SUBLINGUAL PRN ×3 (06:57→12:08)
[2019-01-12] MEDS ORDERED: ALPRAZolam 0.25 MG TAB PO PRN (06:57)
[2019-01-12] MEDS ORDERED: ATORVASTATIN 80 MG TAB PO STA (06:57)
[2019-01-12] MEDS ORDERED: SODIUM CHLORIDE 0.9% 1,000 ML in EMPTY BAG 1 BAG IV ONE (06:57)
[2019-01-12] MEDS ORDERED: ALPRAZolam 0.5 MG TAB PO PRN (06:57)
[2019-01-12] MEDS ORDERED: ASPIRIN 325 MG TAB PO STA (06:57)
[2019-01-12] MEDS ORDERED: SODIUM CHLORIDE 0.9% 1,000 ML IV ONE (07:00)
[2019-01-12] MEDS ORDERED: LIDOCAINE 1% INJ 10MG/ML (20 ML MDV) ONE ×2 (07:15→10:36)
[2019-01-12] MEDS ORDERED: diphenhydrAMINE 50 MG/ML 1 ML VIAL ONE (07:15)
[2019-01-12] MEDS ORDERED: methylPREDNISolone SOD SUCCI 125 MG/2 ML VIAL ONE (07:42)
[2019-01-12] MEDS ORDERED: diphenhydrAMINE 50 MG/ML 1 ML VIAL IVP ONE (07:45)
[2019-01-12] MEDS ORDERED: methylPREDNISolone SOD SUCCI 125 MG/2 ML VIAL IVP ONE (07:45)
[2019-01-12] MEDS: MIDAZOLAM (PF) 2 MG/2 ML VIAL IVP ONE ×2 (07:45→07:48)
[2019-01-12] MEDS ORDERED: LIDOCAINE 1% INJ 10MG/ML (20 ML MDV) SQ ONE ×2 (07:47→11:03)
[2019-01-12] MEDS ORDERED: NITROGLYCERIN SL TABS 0.4 MG TAB SUBLINGUAL ONE ×2 (07:53→07:54)
[2019-01-12] MEDS: ATROPINE SULFATE 0.1 MG/ML 10ML SYRINGE IVP ONE ×2 (08:01→08:02)
[2019-01-12] MEDS ORDERED: DOPamine DRIP 800 MG in DEXTROSE/WATER 1 250ML.BAG IV ONE (08:04)
[2019-01-12] MEDS ORDERED: IOPAMIDOL-370 100ML BTL INJ ONE ×2 (08:23→11:22)
[2019-01-12 09:19] LABS: Basophils % (A) 0 %; Eosinophils % (A) 0 %; HCT 37.6 % (39.0-53.0); HGB 12.5 gm/dL (13.0-17.5); Lymphocytes % (A) 15 %; MCH 28.1 pg (25.0-35.0); MCHC 33.3 g/dL (31.0-37.0); MCV 84.3 fL (80.0-100.0); Mean Platelet Volume 7.5; Monocytes # (A) 0.5 k/uL (0-1.0); Monocytes % (A) 7 %; Neutrophils # (A) 5.1 k/uL (1.3-7.7); Neutrophils % (A) 76 %; Platelet Count 219 k/uL (150-450); Poikilocytosis Slight; RBC 4.46 m/uL (4.30-5.90); RDW 15.2 % (11.5-15.5); WBC 6.7 k/uL (3.8-10.6)
[2019-01-12] MEDS ORDERED: VERAPAMIL 2.5 MG/ML 2 ML AMP ONE (10:36)
[2019-01-12] MEDS ORDERED: IV FLUID CONTINUATION 1,000 ML IV ONE ×2 (10:44)
[2019-01-12] MEDS ORDERED: MIDAZOLAM (PF) 2 MG/2 ML VIAL IVP ONE (11:00)
[2019-01-12] MEDS ORDERED: VERAPAMIL SYRINGE (5 MG/10 ML) INTRAARTER ONE (11:05)
[2019-01-12] MEDS ORDERED: BIVALIRUDIN BOLUS 250 MG/50 ML IV ONE (11:14)
[2019-01-12] MEDS ORDERED: BIVALIRUDIN 250 MG in SODIUM CHLORIDE 0.9% 50 ML IV ONE (11:15)
[2019-01-12] MEDS ORDERED: NITROGLYCERIN 1000MCG/10ML SYRINGE INTRACORON ONE (11:26)
[2019-01-12] MEDS ORDERED: IOPAMIDOL-370 50ML BTL INJ ONE ×2 (11:35→11:52)
[2019-01-12] MEDS ORDERED: CLOPIDOGREL 75 MG TAB ONE (11:38)
[2019-01-12] MEDS ORDERED: HYDROmorphone 1 MG/ML 1 ML SYRINGE ONE (11:46)
[2019-01-12] MEDS ORDERED: CLOPIDOGREL 75 MG TAB PO ONE (11:50)
[2019-01-12] MEDS ORDERED: HYDROmorphone 1 MG/ML 1 ML SYRINGE IVP ONE (11:51)
[2019-01-12] MEDS ORDERED: ATROPINE SULFATE 0.1 MG/ML 10ML SYRINGE IV PRN (11:53)
[2019-01-12] MEDS ORDERED: MAG HYDROX/AL HYDROX/SIMETH 30 ML CUP PO PRN (11:53)
[2019-01-12] MEDS ORDERED: RX INFO: IV CONTRAST WAS GIVEN 1 EACH MISC MISCELLANE PRN (11:53)
--- NOTE | 2019-01-12 12:57 | PTCA ---
PERCUTANEOUSTRANS CORORONARY ANGIOGRAPHY DATE OF SERVICE: 01/12/2019 PTCA and stenting of proximal and mid circumflex coronary artery. PERFORMED BY: Dr. Jane Grimaldo. SEDATION: Moderate conscious sedation time was 40 minutes. Patient was administered Versed and Benadryl. His oxygen saturation, hemodynamics and EKG were monitored closely. CLINICAL INFORMATION: Mr. José Manuel Panchal is a 68-year-old gentleman with a known history of hypertension, paroxysmal atrial fibrillation, hyperlipidemia, who is a patient of Dr. Aguillon, underwent stenting of LAD performed by me about a month ago. He was brought in for elective PCI of circumflex. I talked to the patient at length reviewed with him the rationale, risks, benefits, and options. He understood all details and wished to proceed with the procedure. PROCEDURE NOTE: I brought him actually early this morning and performed and attempted the procedure from the right femoral approach. The patient developed a significant vasovagal episode with bradycardia and hypotension requiring fluids and also atropine. I therefore abandoned the procedure, took the sheath out and placed an Angio-Seal with a with a good hemostasis. I advised the patient and his that we will do a procedure from the right radial approach because seems to be quite sensitive from the manipulation of the artery from the femoral approach. I therefore brought him back at about 10:45 am or so to do the procedure from the right femoral approach. Under strict aseptic precautions and local anesthesia, a 6-Nigerien introducer was placed in the right radial artery. Using a JL5 correction was using a JL3.5 guide catheter to cannulate the left coronary artery. I noted that the LAD that was stented was widely patent, but there was a 40% lesion beyond the stented segment in the LAD and also distally towards the apex, there was a 70% stenosis which is not new. I then turned my attention to the circumflex. A run-through wire was used to cross the lesion. Without predilatation, the mid lesion was stented with a 3.25 caliber 12 mm Xience stent. There was still some narrowing in the midportion and a 3.5 caliber [place] Trek balloon was used to post dilate this lesion with a good result. I noted that the proximal lesion was also significant. I addressed the proximal lesion with a 3.5 caliber 12 mm Xience stent with excellent result. The patient did not have chest pain or EKG changes. Distally just after the bifurcation, both branches of circumflex had a mild to moderate disease and I reviewed this in on the previous angiograms and I performed another angiogram in the caudal projection with a which revealed that the vessels were widely patent with only mild disease. Overall, excellent angiographic result without complication was achieved. Patient was given Angiomax bolus and infusion. He also received additional 225 mg of Plavix. The sheath was taken out and TR band applied as per protocol and was sent to the room in stable condition. The sheath. The saturation of the fingers of the right hand was 99%. Results were discussed with the patient and family. I expect he will be discharged tomorrow if he remains stable. MMODL / IJN: [id number] /
[2019-01-12] MEDS: SODIUM CHLORIDE 0.9% 1,000 ML IV SCH ×4 (14:17→15:37)
[2019-01-12 15:34] VITALS: BMI 28.2
[2019-01-12 15:39] VITALS: RESP 18
[2019-01-12] MEDS ORDERED: RIVAROXABAN 15 MG TAB PO SCH (17:30)
[2019-01-12] MEDS: amLODIPine 5 MG TAB PO SCH (20:32)
[2019-01-12] MEDS ORDERED: ATORVASTATIN 80 MG TAB PO SCH (21:00)
[2019-01-12] MEDS ORDERED: ZOLPIDEM 5 MG TAB PO PRN (21:00)
[2019-01-13] MEDS: SODIUM CHLORIDE 0.9% 1,000 ML IV SCH (01:30)
[2019-01-13 07:04] LABS: Basophils % (A) 0 %; Eosinophils % (A) 0 %; HGB 12.6 gm/dL (13.0-17.5); Lymphocytes # (A) 1.9 k/uL (1.0-4.8); Lymphocytes % (A) 18 %; MCH 27.5 pg (25.0-35.0); MCHC 32.4 g/dL (31.0-37.0); MCV 84.9 fL (80.0-100.0); Monocytes # (A) 0.7 k/uL (0-1.0); Monocytes % (A) 7 %; Neutrophils # (A) 7.6 k/uL (1.3-7.7); Neutrophils % (A) 72 %; Platelet Count 214 k/uL (150-450); RDW 15.2 % (11.5-15.5); WBC 10.4 k/uL (3.8-10.6)
[2019-01-13 07:12] LABS: Calcium 9.1 mg/dL (8.4-10.2)
[2019-01-13] MEDS: amLODIPine 5 MG TAB PO SCH (07:34)
[2019-01-13 07:37] VITALS: BP 134/87; PULSE 82; TEMP 97.5
--- NOTE | 2019-01-13 08:32 | P.DS ---
Providers Date of admission: 01/12/2019 Attending physician: Cierra Grimaldo Consults: 01/12/19 11:54 Consult Physician Routine Consulting Provider: [facility] Consult Reason/Comments: Post Interventional patient Do you want consulting provider notified?: Already Contacted Primary care physician: Randy Allenher - Discharge Diagnosis(es) (1) CAD (coronary artery disease) Current Visit: No Status: Acute (2) Essential hypertension Current Visit: No Status: Acute (3) History of placement of stent in LAD coronary artery Current Visit: No Status: Acute (4) Status post coronary artery stent placement Current Visit: No Status: Acute Hospital Course: This patient was brought as an outpatient for elective stent placement of the circumflex coronary artery. Patient has history of stent placement of the LAD. Dr. VIOLETA Grimaldo attempted to do stent placement in the right groin. Yesterday. Patient developed a vasovagal reaction with bradycardia and hypotension. The procedure was abandoned and Angio-Seal was applied for hemostasis. Subsequently cardiac catheterized was done from the right radial approach and had successful stent placement of the 2 lesions in the circumflex. Patient tolerated the procedure well. He remained stable overnight. His vital signs are stable. His blood work showed a stable platelet count and hemoglobin. Radial pulses preserved and punctured is healing well in the right hand. The groin is soft without any hematoma. Lungs are clear. Heart is regular. No JVD. No p eripheral edema. Patient is tolerating activity well. He is being discharged home to continue baby aspirin, Plavix 75 mg eczema to 15 mg. The rest of the medication to be continued. Patient is advised to avoid any heavy lifting, pushing or pulling. Follow-up in the office in one week Plan - Discharge Summary Discharge Rx Participant: Yes New Discharge Prescriptions: New Rivaroxaban [Xarelto] 15 mg PO W/SUPPER #90 tab Clopidogrel [Plavix] 75 mg PO DAILY tab Continue L.acid/L.casei/B.bif/B.selina/Fos [Probiotic Blend Capsule] 1 cap PO DAILY Multivitamins, Thera [Multivitamin (formulary)] 1 tab PO DAILY@1200 Omeprazole [PriLOSEC] 20 mg PO AC-BRKFST PRN PRN Reason: REFLUX,HEARTBURN Ubidecarenone [Co Q-10] 100 mg PO DAILY [place] Oil 1 cap PO DAILY Aspirin 81 mg PO ONCE Atorvastatin [Lipitor] 80 mg PO HS #30 tab Nitroglycerin Sl Tabs [Nitrostat] 0.4 mg SUBLINGUAL Q5M PRN tab PRN Reason: Chest Pain Clopidogrel [Plavix] 75 mg PO DAILY #30 tab amLODIPine [Norvasc] 5 mg PO BID Metoprolol Succinate (ER) [Toprol XL] 25 mg PO DAILY #90 tab.er.24h Discontinued Rivaroxaban [Xarelto] 5 mg PO DAILY Discharge Medication List L.acid/L.casei/B.bif/B.selina/Fos [Probiotic Blend Capsule] 1 cap PO DAILY 01/06/15 [History] Multivitamins, Thera [Multivitamin (formulary)] 1 tab PO DAILY@1200 01/06/15 [History] Omeprazole [PriLOSEC] 20 mg PO AC-BRKFST PRN 01/06/15 [History] [place] Oil 1 cap PO DAILY 01/06/15 [History] Ubidecarenone [Co Q-10] 100 mg PO DAILY 01/06/15 [History] Aspirin 81 mg PO ONCE 12/13/18 [History] Atorvastatin [Lipitor] 80 mg PO HS #30 tab 12/14/18 [Rx] Clopidogrel [Plavix] 75 mg PO DAILY #30 tab 12/14/18 [Rx] Nitroglycerin Sl Tabs [Nitrostat] 0.4 mg SUBLINGUAL Q5M PRN tab 12/14/18 [Rx] amLODIPine [Norvasc] 5 mg PO BID 01/09/19 [History] Metoprolol Succinate (ER) [Toprol XL] 25 mg PO DAILY #90 tab.er.24h 01/12/19 [Rx] Rivaroxaban [Xarelto] 15 mg PO W/SUPPER #90 tab 01/12/19 [Rx] Clopidogrel [Plavix] 75 mg PO DAILY tab 01/13/19 [Rx] Follow up Appointment(s)/Referral(s): Randy Lincoln MD [Primary Care Provider] - 1 Week (Please call and make an appointment. ) Crystal Aguillon MD [STAFF PHYSICIAN] - 01/19/19 4:30 pm Discharge Disposition: HOME SELF-CARE
[2019-01-13] MEDS ORDERED: CLOPIDOGREL 75 MG TAB PO SCH ×2 (09:00)
[2019-01-13] MEDS ORDERED: METOPROLOL SUCCINATE (ER) 25 MG TAB.ER.24H PO SCH (09:00)
[2019-01-13] MEDS ORDERED: RIVAROXABAN 2.5 MG TABLET PO SCH (09:00)
[2019-01-13] MEDS ORDERED: ASPIRIN 81 MG PO SCH (09:00)
[2019-01-13] MEDS ORDERED: MULTIVITAMINS, THERA 1 EACH TAB PO SCH (12:00)
== END 2019-01-13 10:29 | disposition home or self-care (01) ==
LOC: CATHCVL 06:32 → 3SCARD 11:40 → CATHCVL 01-13 10:29
PROVIDERS: ATTEND Internal Medicine Interventional Cardiology
DX: I25.10 Atherosclerotic heart disease of native coronary artery without angina pectoris (principal); I10 Essential (primary) hypertension; E78.5 Hyperlipidemia, unspecified; Z82.49 Family history of ischemic heart disease and other diseases of the circulatory system; Z95.5 Presence of coronary angioplasty implant and graft; E78.00 Pure hypercholesterolemia, unspecified; I48.91 Unspecified atrial fibrillation; Z86.73 Personal history of transient ischemic attack (TIA), and cerebral infarction without residual deficits; Z79.899 Other long term (current) drug therapy; Z88.8 Allergy status to other drugs, medicaments and biological substances; Z91.048 Other nonmedicinal substance allergy status
CPT/HCPCS: 80048; 85025 ×2; C9600; C1887; C1725; C1769; C1894; C1874; J1200; J2930; J2001; J0461; J1170; J0583; Q9967 ×2; J2250; J1265

== ENCOUNTER → 2019-03-13 | Outpatient (CLI) | payer MEDICAID ==
[2019-03-13 10:56] LABS: Anisocytosis Slight; Basophils # (A) 0.1 k/uL (0-0.2); Basophils % (A) 1 %; Eosinophils # (A) 0.2 k/uL (0-0.7); Eosinophils % (A) 4 %; HCT 41.3 % (39.0-53.0); HGB 13.1 gm/dL (13.0-17.5); Hypochromasia Slight; Lymphocytes % (A) 36 %; MCH 27.6 pg (25.0-35.0); MCHC 31.8 g/dL (31.0-37.0); MCV 86.7 fL (80.0-100.0); Mean Platelet Volume 7.6; Monocytes # (A) 0.5 k/uL (0-1.0); Monocytes % (A) 8 %; Neutrophils # (A) 2.6 k/uL (1.3-7.7); Neutrophils % (A) 48 %; Platelet Count 225 k/uL (150-450); RBC 4.77 m/uL (4.30-5.90); RDW 16.1 % (11.5-15.5); WBC 5.5 k/uL (3.8-10.6)
[2019-03-13 18:08] LABS: African American GFR (CKD) 78.4 (60.0-200.0); Albumin 4.1 g/dL (3.80-4.90); Albumin/Globulin Ratio 1.95 (1.60-3.17); Anion Gap 10.1 mmol/L (4.00-12.00); BUN/Creat Ratio 13.64 Ratio (12.00-20.00); Calcium 9.1 mg/dL (8.7-10.3); Carbon Dioxide 24.9 mmol/L (21.6-31.8); Globulin 2.1 g/dL (1.6-3.3); LDL Cholesterol,Calculated 109.2 mg/dL (0.0-131.0); Potassium 3.9 mmol/L (3.5-5.5); Total Bilirubin 0.5 mg/dL (0.3-1.2); Total Protein 6.2 g/dL (6.2-8.2); VLDL Calculation 33.8 mg/dL (5.00-40.00)
[2019-03-13 18:16] LABS: T4, Free (Free Thyroxine) 1.1 ng/dL (0.80-1.80)
[2019-03-13 20:48] LABS: Hemoglobin A1C 6.4 % (4.0-6.0)
== END | disposition home or self-care (01) ==
LOC: LABWHC1 10:15
PROVIDERS: ATTEND Internal Medicine
DX: E78.2 Mixed hyperlipidemia (principal); I10 Essential (primary) hypertension
CPT/HCPCS: 36415; 80053; 80061; 83036; 84439; 84443; 85025

== ENCOUNTER → 2019-04-04 | Outpatient (CLI) | payer MEDICAID ==
--- NOTE | 2019-04-04 15:44 | XR ---
EXAMINATION TYPE: XR chest 2V DATE OF EXAM: 04/04/2019 COMPARISON: Chest x-ray January 06, 2015 HISTORY: Cough for 2 weeks. TECHNIQUE: Frontal and lateral views of the chest are obtained. FINDINGS: There is no focal air space opacity, pleural effusion, or pneumothorax seen. The cardiac silhouette size is within normal limits. The osseous structures are intact. IMPRESSION: No suspicious acute infiltrate. No significant change from prior.
== END | disposition home or self-care (01) ==
LOC: RADXRMAIN 15:26
PROVIDERS: ATTEND Internal Medicine
DX: J06.9 Acute upper respiratory infection, unspecified (principal)
CPT/HCPCS: 71046

== ENCOUNTER → 2019-04-11 | Outpatient (CLI) | payer MEDICAID ==
--- NOTE | 2019-04-11 15:46 | XR ---
EXAMINATION TYPE: XR hand complete RT DATE OF EXAM: 04/11/2019 CLINICAL HISTORY: Fifth metacarpal pain after injury a few days ago. TECHNIQUE: Frontal, lateral and oblique images of the right hand are obtained. COMPARISON: None. FINDINGS: There is no acute fracture/dislocation evident in the right hand. However there is a heale d fracture deformity of the mid diaphysis of the fifth metacarpal. Degenerative changes are also seen of the first carpometacarpal joint and distal interphalangeal joints most pronounced of the first in terphalangeal joint. The overlying soft tissue appears unremarkable. Small vessel atherosclerosis is incidentally noted. Old fracture deformity of the distal radius is well corticated. IMPRESSION: 1. No acute fracture or dislocation in the right hand. Fracture deformity of the fifth metacarpal romeo ears healed and chronic. Given this patient's pain at this location recent injury MRI or nuclear medi cine bone scan could further assess acuity. 2. Arthropathy of the right hand with the distribution of osteoarthritis.
== END | disposition home or self-care (01) ==
LOC: RADXRMAIN 15:05
PROVIDERS: ATTEND Internal Medicine
DX: M19.041 Primary osteoarthritis, right hand (principal)

== ENCOUNTER 2019-04-29 11:25 | Emergency (ER) | payer MEDICAID, OTHER ==
[2019-04-29 11:38] VITALS: BP 154/96; PULSE 73; RESP 17; TEMP 97.8
--- NOTE | 2019-04-29 11:57 | XR ---
EXAMINATION TYPE: XR knee 4V LT , 4 VIEWS DATE OF EXAM ORDERED: 04/29/2019 HISTORY: Pain. COMPARISON: None. FINDINGS: There is a small exostosis seen arising from the medial metaphysis of the proximal left ti herrera. Joint spaces reasonably well-maintained. There may be some mild medial joint space loss. There is mil d remodeling changes in the medial compartment. There is no evidence of chondrocalcinosis. There is p eaking of intercondylar spines. There is mild remodeling changes in the patellofemoral joint. No defi nite joint effusion is seen. IMPRESSION: 1. NO ACUTE OSSEOUS LESION. 2. MILD CHANGES OF OSTEOARTHRITIS.
[2019-04-29] MEDS ORDERED: KETOROLAC 60 MG/2 ML VIAL IM STA (12:11)
--- NOTE | 2019-04-29 12:14 | ED ---
General Adult HPI - General Chief complaint: Extremity Injury, Lower Stated complaint: Hardball hit knee Time Seen by Provider: 04/29/19 11:36 Source: patient, family, RN notes reviewed, old records reviewed Mode of arrival: wheelchair Limitations: no limitations - History of Present Illness Initial comments: 69-year-old male patient presents to ED for evaluation of left knee. Patient reports that he was umpiring a softball game yesterday he was in the field and a grounder was hit which took a weird bounce and hit him in the left knee. Patient continued to complain first again. Patient currently has pain and swelling in the medial aspect of his left knee, patient is ambulatory without difficulty. Patient denies any other complaints at this time. Systemic: Pt denies fatigue, fever/chills, rash. Pt denies weakness, night sweats, weight loss. Neuro: Pt denies headache, visual disturbances, syncope or pre-syncope. HEENT: Pt denies ocular discharge or irritation, otalgia, rhinorrhea, pharyngitis or notable lymphadenopathy. Cardiopulmonary: Pt denies chest pain, SOB, heart palpitations, dyspnea on exertion. Abdominal/GI: Pt denies abdominal pain, n/v/d. : Pt denies dysuria, burning w/ urination, frequency/urgency. Denies new onset urinary or bowel incontinence. MSK: Pt denies myalgia, loss of strength or function in extremities. Neuro: Pt denies new onset weakness, paresthesias. - Related Data Home Medications Medication Instructions Recorded Confirmed L.acid/L.casei/B.bif/B.selina/Fos 1 cap PO DAILY 01/06/15 01/12/19 [Probiotic Blend Capsule] Multivitamins, Thera [Multivitamin 1 tab PO DAILY@1200 01/06/15 01/12/19 (formulary)] Omeprazole [PriLOSEC] 20 mg PO AC-BRKFST PRN 01/06/15 01/12/19 [place] Oil 1 cap PO DAILY 01/06/15 01/12/19 Ubidecarenone [Co Q-10] 100 mg PO DAILY 01/06/15 01/12/19 Aspirin 81 mg PO ONCE 12/13/18 01/12/19 amLODIPine [Norvasc] 5 mg PO BID 01/09/19 01/12/19 Previous Rx's Medication Instructions Recorded Atorvastatin [Lipitor] 80 mg PO HS #30 tab 12/14/18 Clopidogrel [Plavix] 75 mg PO DAILY #30 tab 12/14/18 Nitroglycerin Sl Tabs [Nitrostat] 0.4 mg SUBLINGUAL Q5M PRN tab 12/14/18 Metoprolol Succinate (ER) [Toprol 25 mg PO DAILY #90 tab.er.24h 01/12/19 XL] Rivaroxaban [Xarelto] 15 mg PO W/SUPPER #90 tab 01/12/19 Clopidogrel [Plavix] 75 mg PO DAILY tab 01/13/19 Allergies Allergy/AdvReac Type Severity Reaction Status Date / Time Iodinated Contrast- Oral and Allergy Rash/Hives Verified 01/12/19 06:58 IV Dye lactose Allergy LOOSE Verified 01/12/19 06:58 STOOLS AND BLOATING povidone-iodine Allergy Rash/Hives Verified 01/12/19 06:58 [From Betadine] steroids Allergy increased Uncoded 01/09/19 12:52 BP Review of Systems ROS Statement: Those systems with pertinent positive or pertinent negative responses have been documented in the HPI. ROS Other: All systems not noted in ROS Statement are negative. Past Medical History Past Medical History: CVA/TIA, GERD/Reflux, Hyperlipidemia, Hypertension, Osteoarthritis (OA) Additional Past Medical History / Comment(s): hx glaucoma-had trabeculoplasty laser sx,CVA 2010, ,MURMUR,LACTOSE INTOLERANT. History of Any Multi-Drug Resistant Organisms: None Reported Past Surgical History: Heart Catheterization, Heart Catheterization With Stent, Hernia Repair, Orthopedic Surgery Additional Past Surgical History / Comment(s): trabeculoplasty for glaucoma, lt inguinal hernia repair, rt ankle orif, bunionectomy, lt WRIST sx HAD A PEICE OF BONE REMOVED., CHASITY knee arthrosocpy, rt rotator cuff, RT KNEE MENISCUS REPAIR. right lower lumbar. 01/12/2019-stent x2 CIRC Past Anesthesia/Blood Transfusion Reactions: Postoperative Nausea & Vomiting (PONV) Additional Past Anesthesia/Blood Transfusion Reaction / Comment(s): after hernia sx had hives not sure from what. Date of Last Stent Placement:: 01/12/2019 Past Psychological History: No Psychological Hx Reported Smoking Status: Never smoker Past Alcohol Use History: None Reported Past Drug Use History: None Reported - Past Family History Brother(s) Family Medical History: Cancer Additional Family Medical History / Comment(s): 1 brother had prostate cancer and one had oral cancer. Father Family Medical History: Hypertension, Myocardial Infarction ([place]), Renal Disease Additional Family Medical History / Comment(s): FROM KIDNEY FAILURE Mother Family Medical History: Coronary Artery Disease (CAD), Diabetes Mellitus Additional Family Medical History / Comment(s): QUAD BYPASS General Exam - General Exam Comments Initial Comments: Constitutional: NAD, AOX3, Pt has pleasant affect. HEENT: NC/AT, trachea midline, neck supple, no lymphadenopathy. Posterior pharynx non erythematous, without exudates. External ears appear normal, without discharge. Mucous membranes moist. Eyes PERRLA, EOM intact. There is no scleral icterus. No pallor noted. Cardiopulmonary: RRR, no murmurs, rubs or gallops, no JVD noted. Lungs CTAB in anterior and posterior prabhakar. No peripheral edema. Abdominal exam: Abdomen soft and non-distended. Abdomen non-tender to palpation in all 4 quadrants. Bowel sounds active in LLQ. No hepatosplenomegaly. No ecchymosis Neuro: CN II-XII grossly intact. No nuchal rigidity. No raccon eyes, no paniagua sign, no hemotympanum. No cervical spinal tenderness. MSK: Mild hematoma noted medial aspect of right knee, full active range of motion, ambulatory without difficulty, neurovascularly intact. Medial aspect of the knee mildly tender palpation, no other areas of tenderness. No posterior calf tenderness bilaterally, homans sign negative bilaterally. Posterior tibialis and radial pulse +2 bilaterally. Sensation intact in upper and lower extremities. Full active ROM in upper and lower extremities, 5/5 stregnth. Limitations: no limitations Course Vital Signs 04/29/19 11:33 Temperature 97.8 F Pulse Rate 73 Respiratory 17 Rate Blood Pressure 154/96 O2 Sat by Pulse 97 Oximetry Medical Decision Making - Medical Decision Making 69-year-old male patient presents to ED for evaluation of left knee after being hit by softball. Patient was also, afebrile. Physical exam displayed mild hematoma, fluctuance range of motion, ambulatory. Plain films negative. Patient with discharge, redness therapy, will follow up with primary care provider and orthopedic consult symptoms persist. Case discussed with Dr. Canales. Disposition Clinical Impression: Hematoma Disposition: HOME SELF-CARE Condition: Stable Instructions (If sedation given, give patient instructions): Contusion in A dults (ED), R.I.C.E. Treatment (ED) Additional Instructions: Patient to adhere to previously discussed treatment plan and will take medication(s) as directed. Patient to follow up with PCP in 1-2 days. Patient to return to ED if symptoms do not improve. Use Tylenol/Motrin as needed for pain. Rice therapy. Follow-up with primary care provider, follow up with orthopedic consult if symptoms persist. Is patient prescribed a controlled substance at d/c from ED?: No Referrals: Randy Lincoln MD [Primary Care Provider] - 1-2 days Jose Kwong DO [Doctor of Osteopathic Medicine] - 1-2 days
== END 2019-04-29 12:23 | disposition home or self-care (01) ==
LOC: EC 11:25
DX: S80.02XA Contusion of left knee, initial encounter (principal); K21.9 Gastro-esophageal reflux disease without esophagitis; I10 Essential (primary) hypertension; M19.90 Unspecified osteoarthritis, unspecified site; Z88.8 Allergy status to other drugs, medicaments and biological substances; Z91.018 Allergy to other foods; Z91.041 Radiographic dye allergy status; Z91.048 Other nonmedicinal substance allergy status; Z79.82 Long term (current) use of aspirin; Z79.899 Other long term (current) drug therapy; Z86.73 Personal history of transient ischemic attack (TIA), and cerebral infarction without residual deficits; W21.07XA Struck by softball, initial encounter; Y93.79 Activity, other specified sports and athletics; Y92.39 Other specified sports and athletic area as the place of occurrence of the external cause; Y99.0 Civilian activity done for income or pay
CPT/HCPCS: 73564; 99284; 96372; J1885

== ENCOUNTER → 2019-07-03 | Outpatient (CLI) | payer MEDICAID ==
--- NOTE | 2019-07-03 09:24 | XR ---
EXAMINATION TYPE: XR cervical spine comp DATE OF EXAM: 07/03/2019 TECHNIQUE: Frontal, lateral, oblique, swimmers, and open mouth view of the cervical spine are obtaine d. HISTORY: M47.892 cervical spondylosis COMPARISON: None FINDINGS: The cervical spine is visualized in its entirety from C1 thru the top of T1 level, it is s atisfactory in alignment without evidence of acute fracture or dislocation. Multilevel intervertebral disc space narrowing, uncovertebral hypertrophy, endplate sclerosis and anterior osteophytes are see n throughout the cervical spine. On the right there is mild neural foraminal narrowing at C4-C5 and C 5-C6 as well as at C6-C7. On the left there is mild neural foraminal narrowing at C3-C4. The pre-virgen tebral soft tissue appears within normal limits. The C1-C2 articulation is within normal limits on t he open mouth view. IMPRESSION: No acute fracture or malalignment is seen in the cervical spine. Moderate multilevel deg enerative disc disease with neural foraminal narrowing at the above levels that could be further asse ssed with MRI.
== END | disposition home or self-care (01) ==
LOC: RADXRMAIN 08:20
PROVIDERS: ATTEND Internal Medicine
DX: M48.02 Spinal stenosis, cervical region (principal); M50.30 Other cervical disc degeneration, unspecified cervical region
CPT/HCPCS: 72050

== ENCOUNTER → 2019-07-03 | Outpatient (CLI) | payer MEDICAID ==
[2019-07-03 08:51] LABS: Basophils % (A) 1 %; Eosinophils # (A) 0.2 k/uL (0-0.7); Eosinophils % (A) 4 %; HCT 38.7 % (39.0-53.0); HGB 12.5 gm/dL (13.0-17.5); Hypochromasia Moderate; Lymphocytes # (A) 1.8 k/uL (1.0-4.8); Lymphocytes % (A) 36 %; MCH 27.7 pg (25.0-35.0); MCHC 32.2 g/dL (31.0-37.0); MCV 85.9 fL (80.0-100.0); Monocytes # (A) 0.4 k/uL (0-1.0); Monocytes % (A) 9 %; Neutrophils # (A) 2.3 k/uL (1.3-7.7); Neutrophils % (A) 47 %; Platelet Count 306 k/uL (150-450); Poikilocytosis Slight; RBC 4.51 m/uL (4.30-5.90); RDW 14.9 % (11.5-15.5); WBC 4.9 k/uL (3.8-10.6)
[2019-07-03 19:15] LABS: African American GFR (CKD) 78.4 (60.0-200.0); Albumin 4.4 g/dL (3.80-4.90); Anion Gap 12.2 mmol/L (4.00-12.00); BUN/Creat Ratio 12.73 Ratio (12.00-20.00); Calcium 9.4 mg/dL (8.7-10.3); Carbon Dioxide 27.8 mmol/L (21.6-31.8); Chol/HDL Ratio 4.67; Globulin 2.2 g/dL (1.6-3.3); LDL Cholesterol,Calculated 134.2 mg/dL (0.0-131.0); Potassium 3.8 mmol/L (3.5-5.5); Total Bilirubin 0.5 mg/dL (0.2-1.2); Total Protein 6.6 g/dL (6.2-8.2); VLDL Calculation 41.8 mg/dL (5.00-40.00)
== END | disposition home or self-care (01) ==
LOC: LABWHC1 08:10
PROVIDERS: ATTEND Internal Medicine
DX: I25.10 Atherosclerotic heart disease of native coronary artery without angina pectoris (principal); I10 Essential (primary) hypertension; N40.0 Benign prostatic hyperplasia without lower urinary tract symptoms
CPT/HCPCS: 36415; 80053; 80061; 83036; 84153; 84439; 84443; 85025

== ENCOUNTER 2019-07-14 15:21 | Observation (INO) | payer MEDICAID, MEDICARE ==
--- NOTE | 2019-07-14 16:06 | ED ---
Dizziness HPI - General Chief Complaint: Syncope Stated Complaint: Dizzy, Near Syncope Time Seen by Provider: 07/14/19 15:25 Source: patient Mode of arrival: wheelchair Limitations: no limitations - History of Present Illness Initial Comments: The patient is a 69-year-old male with past medical history of obesity with gastric bypass, coronary disease, CVA and hypertension presents emergency room with reported presyncopal sensation. He states that he went out today shopping with his family. He was ambulating around Valentines when he felt lightheaded. He states that he had to sit down in order not to pass out. Reported that he started to feel better however when he got up and attempted to ambulate again his symptoms returned. He denies ever fully passing out. Reports 1 history of previous symptoms in the past for which she was diagnosed with "vasovagal syncope". He denies any recent medication changes. No changes in diet. Denies any nausea or vomiting. Denies melanotic stools or hematochezia. No changes in his urination. He denies any chest pain or shortness of breath. No chest palpitations. Denies any visual changes or headaches. No fevers, chills. No recent travel. Denies any calf pain or swelling. No pedal edema. No un ilateral numbness or weakness. There are no other alleviating, precipitating or modifying factors. - Related Data Home Medications Medication Instructions Recorded Confirmed Multivitamins, Thera [Multivitamin 1 tab PO DAILY 01/06/15 07/14/19 (formulary)] Ubidecarenone [Co Q-10] 100 mg PO DAILY 01/06/15 07/14/19 amLODIPine [Norvasc] 10 mg PO DAILY 01/09/19 07/14/19 Magnesium Oxide [Jo] 500 mg PO DAILY 07/14/19 07/14/19 Rivaroxaban [Xarelto] 15 mg PO AC-SUPPER 07/14/19 07/14/19 Previous Rx's Medication Instructions Recorded Atorvastatin [Lipitor] 80 mg PO HS #30 tab 12/14/18 Nitroglycerin Sl Tabs [Nitrostat] 0.4 mg SUBLINGUAL Q5M PRN tab 12/14/18 Metoprolol Succinate (ER) [Toprol 25 mg PO DAILY #90 tab.er.24h 01/12/19 XL] Clopidogrel [Plavix] 75 mg PO DAILY tab 01/13/19 Allergies Allergy/AdvReac Type Severity Reaction Status Date / Time Iodinated Contrast Media Allergy Rash/Hives Verified 07/14/19 17:51 [Iodinated Contrast- Oral and IV Dye] povidone-iodine Allergy Rash/Hives Verified 07/14/19 17:51 [From Betadine] lactose AdvReac LOOSE Verified 07/14/19 17:51 STOOLS AND BLOATING steroids AdvReac increased Uncoded 07/14/19 17:51 BP Review of Systems ROS Statement: Those systems with pertinent positive or pertinent negative responses have been documented in the HPI. ROS Other: All systems not noted in ROS Statement are negative. Past Medical History Past Medical History: CVA/TIA, GERD/Reflux, Hyperlipidemia, Hypertension, Osteoarthritis (OA) Additional Past Medical History / Comment(s): hx glaucoma-had trabeculoplasty laser sx,CVA 2010, ,MURMUR,LACTOSE INTOLERANT. History of Any Multi-Drug Resistant Organisms: None Reported Past Surgical History: Heart Catheterization, Heart Catheterization With Stent, Hernia Repair, Orthopedic Surgery Additional Past Surgical History / Comment(s): trabeculoplasty for glaucoma, lt inguinal hernia repair, rt ankle orif, bunionectomy, lt WRIST sx HAD A PEICE OF BONE REMOVED., CHASITY knee arthrosocpy, rt rotator cuff, RT KNEE MENISCUS REPAIR. right lower lumbar. 01/12/2019-stent x2 CIRC Past Anesthesia/Blood Transfusion Reactions: Postoperative Nausea & Vomiting (PONV) Additional Past Anesthesia/Blood Transfusion Reaction / Comment(s): after hernia sx had hives not sure from what. Date of Last Stent Placement:: 01/12/2019 Past Psychological History: No Psychological Hx Reported Smoking Status: Never smoker Past Alcohol Use History: None Reported Past Drug Use History: None Reported - Past Family History Brother(s) Family Medical History: Cancer Additional Family Medical History / Comment(s): 1 brother had prostate cancer and one had oral cancer. Father Family Medical History: Hypertension, Myocardial Infarction ([place]), Renal Disease Additional Family Medical History / Comment(s): FROM KIDNEY FAILURE Mother Family Medical History: Coronary Artery Disease (CAD), Diabetes Mellitus Additional Family Medical History / Comment(s): QUAD BYPASS General Exam Limitations: no limitations General appearance: alert, in no apparent distress Head exam: Present: atraumatic, normocephalic, normal inspection Eye exam: Present: normal appearance, PERRL, EOMI. Absent: scleral icterus, conjunctival injection, periorbital swelling ENT exam: Present: normal exam, mucous membranes moist Neck exam: Present: normal inspection. Absent: tenderness, meningismus, lymphadenopathy Respiratory exam: Present: normal lung sounds bilaterally. Absent: respiratory distress, wheezes, rales, rhonchi, stridor Cardiovascular Exam: Present: regular rate, normal rhythm, normal heart sounds. Absent: systolic murmur, diastolic murmur, rubs, gallop, clicks GI/Abdominal exam: Present: soft, normal bowel sounds. Absent: distended, tenderness, guarding, rebound, rigid Extremities exam: Present: normal inspection, full ROM, normal capillary refill. Absent: tenderness, pedal edema, joint swelling, calf tenderness Back exam: Present: normal inspection Neurological exam: Present: alert, oriented X3, CN II-XII intact, other (no truncal ataxia. No pronator drift. 5/5 muscle strength in all extemities) Psychiatric exam: Present: normal affect, normal mood Skin exam: Present: warm, dry, intact, normal color. Absent: rash Course Vital Signs 07/14/19 07/14/19 07/14/19 15:23 17:44 18:13 Temperature 98.3 F Pulse Rate 83 71 Pulse Rate [ 77 Left Sitting Pulse Oximetery ] Pulse Rate [ 81 Left Standing Pulse Oximetery ] Pulse Rate [ 71 Left Supine Pulse Oximetery ] Respiratory 18 16 Rate Blood Pressure 171/96 90/61 141/92 Blood Pressure 144/96 [Sitting] Blood Pressure 151/95 [Standing] Blood Pressure 143/92 [Supine] O2 Sat by Pulse 100 99 Oximetry EKG Findings - EKG Comments: EKG Findings:: EKG demonstrates a normal central with a ventricular rate of 84. CA interval 160. QRS 80. QTC 425. Sick T-wave in lead 3. No acute ST segment elevations or depressions concerning for ischemic changes. Inverted T- wave in lead 1 and aVL which is compared patient's previous EKG and was present however more pronounced on new EKG in lead 1 Medical Decision Making - Medical Decision Making Upon arrival the patient was placed into room 2. A thorough history and physical exam was performed. Orthostatics were performed and negative. A 12- lead EKG was performed which demonstrates similar findings to old EKG. Peripheral IV was established. I did recommend laboratory studies. CBC, CMP and coags are unremarkable. Her troponin is negative. UA is clean. CT of the patient's brain demonstrates mild atrophy no acute intracranial process chest x- ray demonstrates no acute findings. I did discuss results with the patient. He was hypertensive and therefore I originally did not start fluids. I did start the patient on 75 mL per hour. Patient reports he still feeling lightheaded upon standing and therefore I recommended hospital admission for cardiology evaluation. A call discuss case with Dr. Castro. She requested an echo. Bridging orders to place the patient is currently waiting for a bed on the floor - Lab Data Result diagrams: 07/14/19 15:48 07/14/19 15:48 Lab Results 07/14/19 07/14/19 07/14/19 Range/Units 15:48 15:48 15:48 WBC 6.0 (3.8-10.6) k/uL RBC 4.49 (4.30-5.90) m/uL Hgb 12.3 L (13.0-17.5) gm/dL Hct 37.7 L (39.0-53.0) % MCV 83.9 (80.0-100.0) fL MCH 27.4 (25.0-35.0) pg MCHC 32.7 (31.0-37.0) g/dL RDW 14.7 (11.5-15.5) % Plt Count 256 (150-450) k/uL Neutrophils % 49 % Lymphocytes % 38 % Monocytes % 7 % Eosinophils % 2 % Basophils % 1 % Neutrophils # 3.0 (1.3-7.7) k/uL Lymphocytes # 2.3 (1.0-4.8) k/uL Monocytes # 0.4 (0-1.0) k/uL Eosinophils # 0.1 (0-0.7) k/uL Basophils # 0.1 (0-0.2) k/uL Hypochromasia Slight Poikilocytosis Slight PT 9.9 (9.0-12.0) sec INR 0.9 (<1.2) APTT 28.3 (22.0-30.0) sec Sodium 139 (137-145) mmol/L Potassium 3.9 (3.5-5.1) mmol/L Chloride 105 (98-107) mmol/L Carbon Dioxide 25 (22-30) mmol/L Anion Gap 9 mmol/L BUN 12 (9-20) mg/dL Creatinine 1.05 (0.66-1.25) mg/dL Est GFR (CKD-EPI)AfAm 83 (>60 ml/min/1.73 sqM) Est GFR (CKD-EPI)NonAf 72 (>60 ml/min/1.73 sqM) Glucose 186 H (74-99) mg/dL Calcium 9.5 (8.4-10.2) mg/dL Total Bilirubin 0.5 (0.2-1.3) mg/dL AST 22 (17-59) U/L ALT 30 (21-72) U/L Alkaline Phosphatase 121 (38-126) U/L Troponin I (0.000-0.034) ng/mL Total Protein 7.6 (6.3-8.2) g/dL Albumin 4.3 (3.5-5.0) g/dL Urine Color Urine Appearance (Clear) Urine pH (5.0-8.0) Ur Specific [place] (1.001-1.035) Urine Protein (Negative) Urine Glucose (UA) (Negative) Urine Ketones (Negative) Urine Blood (Negative) Urine Nitrite (Negative) Urine Bilirubin (Negative) Urine Urobilinogen (<2.0) mg/dL Ur Leukocyte Esterase (Negative) Urine RBC (0-5) /hpf Urine WBC (0-5) /hpf Urine Mucus (None) /hpf 07/14/19 07/14/19 Range/Units 15:48 15:48 WBC (3.8-10.6) k/uL RBC (4.30-5.90) m/uL Hgb (13.0-17.5) gm/dL Hct (39.0-53.0) % MCV (80.0-100.0) fL MCH (25.0-35.0) pg MCHC (31.0-37.0) g/dL RDW (11.5-15.5) % Plt Count (150-450) k/uL Neutrophils % % Lymphocytes % % Monocytes % % Eosinophils % % Basophils % % Neutrophils # (1.3-7.7) k/uL Lymphocytes # (1.0-4.8) k/uL Monocytes # (0-1.0) k/uL Eosinophils # (0-0.7) k/uL Basophils # (0-0.2) k/uL Hypochromasia Poikilocytosis PT (9.0-12.0) sec INR (<1.2) APTT (22.0-30.0) sec Sodium (137-145) mmol/L Potassium (3.5-5.1) mmol/L Chloride (98-107) mmol/L Carbon Dioxide (22-30) mmol/L Anion Gap mmol/L BUN (9-20) mg/dL Creatinine (0.66-1.25) mg/dL Est GFR (CKD-EPI)AfAm (>60 ml/min/1.73 sqM) Est GFR (CKD-EPI)NonAf (>60 ml/min/1.73 sqM) Glucose (74-99) mg/dL Calcium (8.4-10.2) mg/dL Total Bilirubin (0.2-1.3) mg/dL AST (17-59) U/L ALT (21-72) U/L Alkaline Phosphatase (38-126) U/L Troponin I <0.012 (0.000-0.034) ng/mL Total Protein (6.3-8.2) g/dL Albumin (3.5-5.0) g/dL Urine Color Yellow Urine Appearance Clear (Clear) Urine pH 6.0 (5.0-8.0) Ur Specific [place] 1.020 (1.001-1.035) Urine Protein 2+ H (Negative) Urine Glucose (UA) Negative (Negative) Urine Ketones Negative (Negative) Urine Blood Negative (Negative) Urine Nitrite Negative (Negative) Urine Bilirubin Negative (Negative) Urine Urobilinogen <2.0 (<2.0) mg/dL Ur Leukocyte Esterase Negative (Negative) Urine RBC 1 (0-5) /hpf Urine WBC <1 (0-5) /hpf Urine Mucus Few H (None) /hpf Disposition Clinical Impression: Pre-syncope Disposition: ADMITTED IP TO THIS [facility] Condition: Stable Is patient prescribed a controlled substance at d/c from ED?: No Decision to Admit Reason: Admit from EC Decision Date: 07/14/19 Decision Time: 18:40
[2019-07-14 16:18] LABS: Appearance,Urine Clear (Clear); Bilirubin,Urine Negative (Negative); Blood,Urine Negative (Negative); Color,Urine Yellow; Glucose,Urine (UA) Negative (Negative); Ketones,Urine Negative (Negative); Leukocyte Esterase,Urine Negative (Negative); Mucus,Urine Few /hpf; Nitrite,Urine Negative (Negative); Protein,Urine 2+ (Negative); RBC,Urine 1 /hpf (0-5); Urobilinogen,Urine <2.0 mg/dL (<2.0); WBC,Urine <1 /hpf (0-5)
--- NOTE | 2019-07-14 16:19 | XR ---
EXAMINATION TYPE: XR chest 2V DATE OF EXAM: 07/14/2019 COMPARISON: 04/04/2019 HISTORY: Syncope TECHNIQUE: Frontal and lateral views of the chest are obtained. FINDINGS: Heart and mediastinum are normal. Lungs are clear. Diaphragm is normal. Bony thorax appear s normal. IMPRESSION: Normal chest. No change.
[2019-07-14 16:25] LABS: Albumin 4.3 g/dL (3.5-5.0); Calcium 9.5 mg/dL (8.4-10.2); Potassium 3.9 mmol/L (3.5-5.1); Total Bilirubin 0.5 mg/dL (0.2-1.3); Total Protein 7.6 g/dL (6.3-8.2)
[2019-07-14 16:28] LABS: Basophils # (A) 0.1 k/uL (0-0.2); Basophils % (A) 1 %; Eosinophils # (A) 0.1 k/uL (0-0.7); Eosinophils % (A) 2 %; HCT 37.7 % (39.0-53.0); HGB 12.3 gm/dL (13.0-17.5); Hypochromasia Slight; Lymphocytes # (A) 2.3 k/uL (1.0-4.8); Lymphocytes % (A) 38 %; MCH 27.4 pg (25.0-35.0); MCHC 32.7 g/dL (31.0-37.0); MCV 83.9 fL (80.0-100.0); Mean Platelet Volume 6.4; Monocytes # (A) 0.4 k/uL (0-1.0); Monocytes % (A) 7 %; Neutrophils % (A) 49 %; Platelet Count 256 k/uL (150-450); Poikilocytosis Slight; RBC 4.49 m/uL (4.30-5.90); RDW 14.7 % (11.5-15.5)
[2019-07-14 16:29] LABS: INR 0.9 (<1.2); Partial Thromboplastin Time 28.3 sec (22.0-30.0); Prothrombin Time 9.9 sec (9.0-12.0)
--- NOTE | 2019-07-14 16:32 | CT ---
EXAMINATION TYPE: CT brain wo con DATE OF EXAM: 07/14/2019 COMPARISON: 01/04/2016 HISTORY: headache, near syncopal episode CT DLP: 1098.4 mGycm Automated exposure control for dose reduction was used. FINDINGS: Ventricles have normal size. There is no mass effect nor midline shift. There is no sign of intracran ial hemorrhage. There is mild cerebral atrophy. Calvarium is intact. IMPRESSION: MILD ATROPHY. NO ACUTE INTRACRANIAL ABNORMALITY. NO CHANGE.
[2019-07-14] MEDS ORDERED: NALOXONE 0.4 MG/ML 1 ML VIAL IV PRN (18:40)
[2019-07-14] MEDS ORDERED: SODIUM CHLORIDE 0.9% 1,000 ML IV SCH (18:45)
[2019-07-14] MEDS ORDERED: RIVAROXABAN 15 MG TAB PO SCH (18:45)
[2019-07-14] MEDS ORDERED: ATORVASTATIN 80 MG TAB PO SCH (21:00)
[2019-07-14] MEDS ORDERED: ACETAMINOPHEN TAB 500 MG TAB PO PRN (22:37)
[2019-07-15] MEDS ORDERED: SODIUM CHLORIDE 0.9% 1,000 ML IV SCH (06:45)
--- NOTE | 2019-07-15 08:04 | CONS ---
CONSULTATION José Manuel Panchal is a 69-year-old gentleman with a known history of CAD and multivessel PCI. This gentleman sees Dr. Aguillon in the office. He has a history of a vasovagal episodes before. In December and January of this year, I performed stenting of his proximal LAD and circumflex coronary artery in multiple areas. There is still some distal LAD disease that we know persists but he has been on medical therapy for that. He was doing remarkably well. He had no anginal symptoms, was shopping yesterday in [employer], then he felt woozy, slightly felt a bit warm and had a sensation as though he will pass out and this happened twice and therefore he came into the hospital. This gentleman in January when I performed a cardiac cath, became vasovagal when I was doing a cardiac cath from the femoral approach and I switched over to a radial approach and performed the procedure. He is known to have paroxysmal atrial fibrillation, hypertension, and hyperlipidemia. Vasovagal episodes are not new for this patient. At the time of my evaluation, he is resting comfortably without symptoms. He has no orthostatic changes. PAST MEDICAL HISTORY: 1. CAD with multivessel PTCA, last one was circumflex in January of this year and in December I performed LAD stenting. 2. Hypertension. 3. Hyperlipidemia. 4. Paroxysmal atrial fibrillation. MEDICATIONS: At home include Norvasc 10 mg daily, Lipitor 80 mg daily, Plavix 75 mg daily, Xarelto 15 mg daily, metoprolol succinate 25 mg daily. ALLERGIES: HE IS ALLERGIC TO IODINE, LACTOSE, AND STEROIDS. PHYSICAL EXAMINATION: Blood pressure is 130/60, pulse rate is 70. HEENT unremarkable. Fundus was not examined by me. Neck is supple. No JVD. There is a short systolic murmur at left lower sternal border. Lungs are clear. Abdomen is soft, nontender. Lower extremities reveal normal pulses. No edema. Central nervous system is normal. EKG revealed a sinus mechanism with nonspecific T-wave changes which are not new. LABORATORY DATA: Laboratory data revealed that all 3 troponins are normal. IMPRESSION: 1. Vasovagal episode with presyncope. 2. Coronary artery disease, stable. No angina, history of multivessel PCI. 3. Hypertension. 4. Hyperlipidemia. RECOMMENDATIONS: I will hydrate the patient with IV fluids 200 mL/hour for the next 4 hours, increase activity. If he has no further symptoms, he can be discharged and see Dr. Sanchez in the office. MMODL / IJN: [id number] /
[2019-07-15] MEDS ORDERED: METOPROLOL SUCCINATE (ER) 25 MG TAB.ER.24H PO SCH (09:00)
[2019-07-15] MEDS ORDERED: MAGNESIUM OXIDE 400 MG TAB PO SCH (09:00)
[2019-07-15] MEDS ORDERED: MULTIVITAMINS, THERA 1 EACH TAB PO SCH (09:00)
[2019-07-15] MEDS ORDERED: NON FORMULARY DRUG (Ubidecarenone [Co Q-10] 100 MG) PO SCH (09:00)
[2019-07-15] MEDS ORDERED: CLOPIDOGREL 75 MG TAB PO SCH (09:00)
[2019-07-15] MEDS ORDERED: amLODIPine 10 MG TAB PO SCH (09:00)
[2019-07-15 09:08] VITALS: PULSE 73
--- NOTE | 2019-07-15 11:50 | P.HPIM ---
History of Present Illness H&P Date: 07/15/19 Chief Complaint: Near syncope This is a pleasant 69 year old -[place] male who presented to the emergency room due to presyncopal sensation. Patient states that he was shopping with his family. While ambulating he felt lightheaded and dizzy. Patient sat down and drink some water the sensation passed. However every time he stood he continued to feel lightheaded and dizzy. Patient denies any syncope. Patient does require previous episodes in the past with the same symptoms he was diagnosed with vasovagal syncope. At this time patient is resting comfortable in bed in no acute distress. He is not having any symptoms of lightheadedness or dizziness. Patient has been administering the room without any difficulties. Patient utilizes compression stockings daily. Patient states that he drinks plenty of fluid daily. Patient has significant past medical history of CVA/TIA, hyperlipidemia, proximal A. fib, hypertension, severe arthritis, obesity with gastric bypass, glaucoma. In January of this year the patient had stenting of his proximal LAD and circumflex. He did have distal disease to his LAD however that is being treated medically. CT of the brain shows mild atrophy, no acute intracranial abnormalities, no change. Chest x-ray was normal. EKG shows sinus rhythm. Decreased the 6.0, hemoglobin 12.3, platelets 256, testing 3.9, BUN 12, creatinine 1.05. Urinalysis negative Review of Systems Review Of Systems: Constitutional: No fever, no chills, no night sweats. No weight change. No weakness, fatigue or lethargy. No daytime sleepiness. EENT: No headache. No blurred vision or double vision, no loss of vision. No loss of Hearing, no ringing in the ears, no dizziness. No nasal drainage or congestion. No epistaxis. No sore throat. Lungs: No shortness of breath, cough, no sputum production. No wheezing. Cardiovascular: No chest pain, no lower extremity edema. No palpitations. No paroxysmal nocturnal dyspnea. No orthopnea. No lightheadedness or dizziness. No syncopal episodes. Abdominal: no abdominal discomfort. No nausea, vomiting. no diarrhea. No constipation. No bloody or tarry stools. no loss of appetite. Genitourinary: No dysuria, increased frequency, urgency. No urinary retention. Musculoskeletal: No myalgias. No muscle weakness, no gait dysfunction, no frequent falls. No back pain. No neck pain. Integumentary: No wounds, no lesions. No rash or pruritus. No unusual brui sing. No change in hair or nails. Neurologic: No aphasia. No facial droop. No change in mentation. No head injury. No headache. No paralysis. No paresthesia. Psychiatric: No depression. No anxiety. No mood swings. Endocrine: No abnormal blood sugars. No weight change. No excessive sweating or thirst. Past Medical History Past Medical History: CVA/TIA, Hyperlipidemia, Hypertension, Osteoarthritis (OA) Additional Past Medical History / Comment(s): hx glaucoma-had trabeculoplasty laser sx,CVA 2010, ,MURMUR,LACTOSE INTOLERANT. History of Any Multi-Drug Resistant Organisms: None Reported Past Surgical History: Heart Catheterization, Heart Catheterization With Stent, Hernia Repair, Orthopedic Surgery Additional Past Surgical History / Comment(s): trabeculoplasty for glaucoma, lt inguinal hernia repair, rt ankle orif, bunionectomy, lt WRIST sx HAD A PEICE OF BONE REMOVED., CHASITY knee arthrosocpy, rt rotator cuff, RT KNEE MENISCUS REPAIR. right lower lumbar. 01/12/2019-stent x2 CIRC Past Anesthesia/Blood Transfusion Reactions: Postoperative Nausea & Vomiting (PONV) Additional Past Anesthesia/Blood Transfusion Reaction / Comment(s): after hernia sx had hives not sure from what. Date of Last Stent Placement:: 01/12/2019 Past Psychological History: No Psychological Hx Reported Smoking Status: Never smoker Past Alcohol Use History: None Reported Past Drug Use History: None Reported - Past Family History Brother(s) Family Medical History: Cancer Additional Family Medical History / Comment(s): 1 brother had prostate cancer and one had oral cancer. Father Family Medical History: Hypertension, Myocardial Infarction ([place]), Renal Disease Additional Family Medical History / Comment(s): FROM KIDNEY FAILURE Mother Family Medical History: Coronary Artery Disease (CAD), Diabetes Mellitus Additional Family Medical History / Comment(s): QUAD BYPASS Medications and Allergies Home Medications Medication Instructions Recorded Confirmed Type Multivitamins, Thera [Multivitamin 1 tab PO DAILY 01/06/15 07/14/19 History (formulary)] Ubidecarenone [Co Q-10] 100 mg PO DAILY 01/06/15 07/14/19 History Atorvastatin [Lipitor] 80 mg PO HS #30 tab 12/14/18 07/14/19 Rx Nitroglycerin Sl Tabs [Nitrostat] 0.4 mg SUBLINGUAL Q5M PRN tab 12/14/18 07/14/19 Rx amLODIPine [Norvasc] 10 mg PO DAILY 01/09/19 07/14/19 History Metoprolol Succinate (ER) [Toprol 25 mg PO DAILY #90 tab.er.24h 01/12/19 07/14/19 Rx XL] Clopidogrel [Plavix] 75 mg PO DAILY tab 01/13/19 07/14/19 Rx Magnesium Oxide [Jo] 500 mg PO DAILY 07/14/19 07/14/19 History Rivaroxaban [Xarelto] 15 mg PO AC-SUPPER 07/14/19 07/14/19 History Allergies Allergy/AdvReac Type Severity Reaction Status Date / Time Iodinated Contrast Media Allergy Rash/Hives Verified 07/14/19 17:51 [Iodinated Contrast- Oral and IV Dye] povidone-iodine Allergy Rash/Hives Verified 07/14/19 17:51 [From Betadine] lactose AdvReac LOOSE Verified 07/14/19 17:51 STOOLS AND BLOATING steroids AdvReac increased Uncoded 07/14/19 17:51 BP Physical Exam Vitals: Vital Signs Temp Pulse Pulse Pulse Pulse Pulse Resp 07/15/19 08:00 97.8 F 73 16 07/15/19 03:49 97.9 F 74 18 07/14/19 23:15 98.5 F 75 18 07/14/19 19:30 97.7 F 65 18 07/14/19 18:13 71 77 81 71 16 07/14/19 17:44 07/14/19 15:23 98.3 F 83 18 BP BP BP BP BP Pulse Ox 07/15/19 08:00 127/69 98 07/15/19 03:49 136/81 98 07/14/19 23:15 166/81 99 07/14/19 19:30 156/79 99 07/14/19 18:13 141/92 144/96 151/95 143/92 99 07/14/19 17:44 90/61 07/14/19 15:23 171/96 100 Intake and Output 1107/15/19 07/15/19 23:59 06:59 14:59 Other: Voiding Method Toilet # Voids General Appearance: Alert, cooperative, no distress, appears stated age. Neck HEENT: Supple, no lymphadenopathy, no thyroid enlargement, no carotid bruits. Lungs: Clear to auscultation without crackles or wheezes no rhonchi, no deformity. Chest Wall: Chest wall normal expansion with deep inspiration no tenderness and no deformity was found on exam, no costochondral pain or discomfort. Heart: Regular rate and rhythm, S1, S2 normal, no murmur, rub or gallop. Back: Symmetric, no curvature, ROM normal, no CVA tenderness. Abdomen: Soft, non-tender, no rebound or rigidity, no hepatosplenomegaly. Extremities: Extremities normal, atraumatic, no cyanosis or edema. Pulses: 2+ and symmetric. Skin: Skin color, texture, tugor normal, no rashes or lesions. Neurologic: Alert oriented x3 cranial nerves II through XII intact, no motor deficit, no abnormal balance or gait Results CBC & Chem 7: 07/14/19 15:48 07/14/19 15:48 Labs: Abnormal Lab Results - Last 24 Hours (Table) 07/14/19 07/14/19 07/14/19 Range/Units 15:48 15:48 15:48 Hgb 12.3 L (13.0-17.5) gm/dL Hct 37.7 L (39.0-53.0) % Glucose 186 H (74-99) mg/dL Urine Protein 2+ H (Negative) Urine Mucus Few H (None) /hpf Thrombosis Risk Factor Assmnt - Choose All That Apply Each Factor Represents 1 point: Obesity (BMI >25) Each Risk Factor Represents 2 Points: Age 61-74 years Thrombosis Risk Factor Assessment Total Risk Factor Score: 3 Thrombosis Risk Factor Assessment Level: Moderate Risk Assessment and Plan Plan: 1. Vasovagal episode with presyncope. Cardiology consult appreciated. IV fluids 200 MLS per hour for 4 hours. Increase activity. Discharge home if asymptomatic 2. Presyncope. As noted above 3. Coronary artery disease post stenting of proximal LAD and circumflex in January 2018. Continue atorvastatin, Plavix, 4. Hypertension. Continue Norvasc 10 mg by mouth daily, 5. Hyperlipidemia. Continue atorvastatin 6. History of CVA/TIA. CT of the brain results noted above, continues xarelto 7. Osteoarthritis. Stable Discharge plan: Patient to be discharged home today. Impression and plan of care have been directed as dictated by the signing physician. Jamila Dougherty nurse practitioner acting as scribe for signing physician.
--- NOTE | 2019-07-15 11:52 | P.DS ---
Providers Date of admission: 07/14/19 18:40 Attending physician: Odilia Castro MD Consults: 07/14/19 18:41 Consult Physician Urgent Consulting Provider: [facility] Consult Reason/Comments: presyncope, hx ascad Do you want consulting provider notified?: Yes Primary care [facility] Course: Chief Complaint: Near syncope This is a pleasant 69 year old -Thai male who presented to the emergency room due to presyncopal sensation. Patient states that he was shopping with his family. While ambulating he felt lightheaded and dizzy. Patient sat down and drink some water the sensation passed. However every time he stood he continued to feel lightheaded and dizzy. Patient denies any syncope. Patient does require previous episodes in the past with the same s ymptoms he was diagnosed with vasovagal syncope. At this time patient is resting comfortable in bed in no acute distress. He is not having any symptoms of lightheadedness or dizziness. Patient has been administering the room without any difficulties. Patient utilizes compression stockings daily. Patient states that he drinks plenty of fluid daily. Patient has significant past medical history of CVA/TIA, hyperlipidemia, proximal A. fib, hypertension, severe arthritis, obesity with gastric bypass, glaucoma. In January of this year the patient had stenting of his proximal LAD and circumflex. He did have distal disease to his LAD however that is being treated medically. CT of the brain shows mild atrophy, no acute intracranial abnormalities, no change. Chest x-ray was normal. EKG shows sinus rhythm. Decreased the 6.0, hemoglobin 12.3, platelets 256, testing 3.9, BUN 12, creatinine 1.05. Urinalysis negative Discharge diagnosis: 1. Vasovagal episode with presyncope. 2. Presyncope. 3. Coronary artery disease post stenting of proximal LAD and circumflex in January 2018. 4. Hypertension. 5. Hyperlipidemia. 6. History of CVA/TIA. 7. Osteoarthritis. Discharge disposition: Home with self-care Impression and plan of care have been directed as dictated by the signing physician. Jamila Dougherty nurse practitioner acting as scribe for signing physician. Patient Condition at Discharge: Stable Plan - Discharge Summary New Discharge Prescriptions: Continue Multivitamins, Thera [Multivitamin (formulary)] 1 tab PO DAILY Ubidecarenone [Co Q-10] 100 mg PO DAILY Atorvastatin [Lipitor] 80 mg PO HS #30 tab Nitroglycerin Sl Tabs [Nitrostat] 0.4 mg SUBLINGUAL Q5M PRN tab PRN Reason: Chest Pain amLODIPine [Norvasc] 10 mg PO DAILY Metoprolol Succinate (ER) [Toprol XL] 25 mg PO DAILY #90 tab.er.24h Clopidogrel [Plavix] 75 mg PO DAILY tab Rivaroxaban [Xarelto] 15 mg PO AC-SUPPER Magnesium Oxide [Jo] 500 mg PO DAILY Discharge Medication List Multivitamins, Thera [Multivitamin (formulary)] 1 tab PO DAILY 01/06/15 [History] Ubidecarenone [Co Q-10] 100 mg PO DAILY 01/06/15 [History] Atorvastatin [Lipitor] 80 mg PO HS #30 tab 12/14/18 [Rx] Nitroglycerin Sl Tabs [Nitrostat] 0.4 mg SUBLINGUAL Q5M PRN tab 12/14/18 [Rx] amLODIPine [Norvasc] 10 mg PO DAILY 01/09/19 [History] Metoprolol Succinate (ER) [Toprol XL] 25 mg PO DAILY #90 tab.er.24h 01/12/19 [Rx] Clopidogrel [Plavix] 75 mg PO DAILY tab 01/13/19 [Rx] Magnesium Oxide [Jo] 500 mg PO DAILY 07/14/19 [History] Rivaroxaban [Xarelto] 15 mg PO AC-SUPPER 07/14/19 [History] Follow up Appointment(s)/Referral(s): Randy Lincoln MD [Primary Care Provider] - 1-2 days Patient Instructions/Handouts: Syncope (DC)
[2019-07-15 12:21] VITALS: BP 135/74; RESP 18; TEMP 97.9
== END 2019-07-15 13:09 | disposition home or self-care (01) ==
LOC: EC 15:21 → 1SOBS 18:40
PROVIDERS: ADMIT Internal Medicine; ATTEND Internal Medicine
DX: R55 Syncope and collapse (principal); R42 Dizziness and giddiness; I10 Essential (primary) hypertension; I25.10 Atherosclerotic heart disease of native coronary artery without angina pectoris; I48.0 Paroxysmal atrial fibrillation; E78.5 Hyperlipidemia, unspecified; M19.90 Unspecified osteoarthritis, unspecified site; H40.9 Unspecified glaucoma; E66.9 Obesity, unspecified; Z68.27 Body mass index [BMI] 27.0-27.9, adult; E73.9 Lactose intolerance, unspecified; Z79.02 Long term (current) use of antithrombotics/antiplatelets; Z79.01 Long term (current) use of anticoagulants; Z79.899 Other long term (current) drug therapy; Z88.8 Allergy status to other drugs, medicaments and biological substances; Z91.041 Radiographic dye allergy status; Z98.84 Bariatric surgery status; Z86.73 Personal history of transient ischemic attack (TIA), and cerebral infarction without residual deficits; Z95.5 Presence of coronary angioplasty implant and graft; Z84.1 Family history of disorders of kidney and ureter; Z80.8 Family history of malignant neoplasm of other organs or systems; Z80.42 Family history of malignant neoplasm of prostate; Z82.49 Family history of ischemic heart disease and other diseases of the circulatory system; Z83.3 Family history of diabetes mellitus
CPT/HCPCS: 99285; 36415; 93005; 80053; 84484 ×2; 85025; 85610; 85730; 81001; 71046; 70450; G0378 ×2

== ENCOUNTER → 2019-07-26 | Outpatient (CLI) | payer MEDICAID ==
--- NOTE | 2019-07-26 08:29 | MR ---
EXAMINATION TYPE: MR cervical spine wo con DATE OF EXAM: 07/26/2019 COMPARISON: Cervical spine x-ray 07/03/2019 HISTORY: Cervicalgia TECHNIQUE: Multiplanar, multisequence images of the cervical spine were acquired. C2-C3: Degenerative disc disease and uncovertebral joint hypertrophy greater on the right. Mild facet arthropathy. No focal disc herniation or canal stenosis. Mild right foraminal encroachment. C3-C4: Severe degenerative disc disease with broad-based central disc protrusion results in effacemen t of thecal sac. No spinal cord contact. Uncovertebral joint hypertrophy noted with moderate bilatera l foraminal encroachment and mild canal stenosis. C4-C5: Severe degenerative disc disease with a broad-based disc protrusion and effacement of thecal s ac. Uncovertebral joint hypertrophy noted severe left-sided foraminal encroachment and moderate right foraminal encroachment. Mild central canal stenosis. No spinal cord contact. C5-C6: Severe degenerative disc disease with broad-based central disc protrusion abutting the anterio r margin the spinal cord. Moderate canal stenosis with uncovertebral joint hypertrophy. Moderate bila teral foraminal encroachment. C6-C7: Severe degenerative disc disease with uncovertebral joint hypertrophy. No Canal stenosis. Mild right-sided foraminal encroachment. Mild central disc bulging. C7-T1: Right paracentral and central small disc herniation with no spinal cord contact. There is mass effect upon the thecal sac. Neural foramina patent. Cervical segments are intact. There is normal alignment. Cervical spinal cord is of normal signal. Craniovertebral junction relationships are within normal limits. IMPRESSION: 1. Severe multilevel degenerative disc disease with multilevel uncovertebral joint hypertrophy and di sc bulging or protrusions result in multilevel canal stenosis with the most marked findings at C4-5, C5-6, and C6-C7. 2. Right paracentral and central small disc herniation C7-T1 with mild effacement of thecal sac but n o spinal cord contact. No foraminal encroachment.
== END | disposition home or self-care (01) ==
LOC: RADMRIMAIN 07:17
PROVIDERS: ATTEND Internal Medicine
DX: M48.02 Spinal stenosis, cervical region (principal); M50.23 Other cervical disc displacement, cervicothoracic region; M50.321 Other cervical disc degeneration at C4-C5 level
CPT/HCPCS: 72141

== ENCOUNTER → 2019-09-22 | Outpatient (CLI) | payer MEDICAID ==
--- NOTE | 2019-09-22 15:26 | CT ---
EXAMINATION TYPE: CT brain wo con DATE OF EXAM: 09/22/2019 COMPARISON: 07/14/2019 HISTORY: Cerebral infarct in July. I 63.9 CT DLP: 1077.40 mGycm Automated exposure control for dose reduction was used. TECHNIQUE: CT scan of the head is performed without contrast. FINDINGS: There is no acute intracranial hemorrhage or midline shift identified. There is diffuse v entricular and sulcal prominence consistent with diffuse age-related cerebral atrophy. There is low- attenuation in the periventricular white matter consistent with chronic small vessel ischemic change. The globes are intact and the visualized sinuses are clear. Atherosclerosis of the intracranial v asculature. IMPRESSION: 1. No acute intracranial hemorrhage or midline shift. 2. Prominence of the distal left internal carotid artery. CTA or MRA brain are recommended to exclude aneurysm. 3. Diffuse age-related cerebral atrophy and mild burden nonspecific white matter change, most commonl y on the basis of chronic microangiopathy.
== END | disposition home or self-care (01) ==
LOC: RADCTMAIN 08:10
PROVIDERS: ATTEND Internal Medicine
DX: I63.9 Cerebral infarction, unspecified (principal); I73.9 Peripheral vascular disease, unspecified
CPT/HCPCS: 70450

== ENCOUNTER → 2019-09-29 | Outpatient (CLI) | payer MEDICAID ==
[2019-09-29 09:42] LABS: Basophils # (A) 0.1 k/uL (0-0.2); Basophils % (A) 2 %; Eosinophils # (A) 0.1 k/uL (0-0.7); Eosinophils % (A) 2 %; HCT 40.3 % (39.0-53.0); HGB 12.8 gm/dL (13.0-17.5); Hypochromasia Slight; Lymphocytes # (A) 2.1 k/uL (1.0-4.8); Lymphocytes % (A) 33 %; MCH 25.9 pg (25.0-35.0); MCHC 31.7 g/dL (31.0-37.0); MCV 81.8 fL (80.0-100.0); Mean Platelet Volume 7.5; Monocytes # (A) 0.5 k/uL (0-1.0); Monocytes % (A) 8 %; Neutrophils # (A) 3.2 k/uL (1.3-7.7); Neutrophils % (A) 52 %; Platelet Count 254 k/uL (150-450); RBC 4.92 m/uL (4.30-5.90); RDW 15.9 % (11.5-15.5); WBC 6.1 k/uL (3.8-10.6)
[2019-09-29 13:52] LABS: African American GFR (CKD) 78.4 (60.0-200.0); Albumin 4.3 g/dL (3.80-4.90); Albumin/Globulin Ratio 1.79 (1.60-3.17); Anion Gap 8.1 mmol/L (4.00-12.00); BUN/Creat Ratio 15.45 Ratio (12.00-20.00); Calcium 9.5 mg/dL (8.7-10.3); Carbon Dioxide 29.9 mmol/L (21.6-31.8); Chol/HDL Ratio 4.1; Globulin 2.4 g/dL (1.6-3.3); LDL Cholesterol,Calculated 110.8 mg/dL (0.0-131.0); Magnesium 2.3 mg/dL (1.5-2.4); Non-African American GFR(CKD) 67.7 (60.0-200.0); Potassium 3.4 mmol/L (3.5-5.5); Total Bilirubin 0.9 mg/dL (0.3-1.2); Total Protein 6.7 g/dL (6.2-8.2); VLDL Calculation 44.2 mg/dL (5.00-40.00)
[2019-09-29 14:41] LABS: Hemoglobin A1C 6.5 % (4.0-6.0)
== END | disposition home or self-care (01) ==
LOC: LABWHC1 08:41
PROVIDERS: ATTEND Internal Medicine
DX: I10 Essential (primary) hypertension (principal); I63.9 Cerebral infarction, unspecified; E78.2 Mixed hyperlipidemia
CPT/HCPCS: 36415; 80053; 80061; 80177; 83036; 83735; 84443; 85025

== ENCOUNTER → 2019-10-03 | Outpatient (CLI) | payer MEDICAID ==
--- NOTE | 2019-10-04 08:24 | CT ---
EXAMINATION TYPE: CT angio head neck DATE OF EXAM: 10/03/2019 COMPARISON: HISTORY: Left sided weakness and double vision. CT DLP: 328.5 mGycm CONTRAST: Performed with IV Contrast, patient injected with 65ml mL of Isovue 370. Combination Contrast CTA cervical carotids and [place] CTA cervical carotids with 3-D recons truction Contrast CTA of the cervical carotids was performed 3-D reconstruction imaging obtained at a separate workstation. Right carotid system: Mild plaque is seen of the right common carotid artery. There is mild plaque a lso noted at the carotid bulb and proximal ICA. No significant diameter reduction. ECA is patent. Right vertebral artery appears unremarkable. Left carotid system: Mild plaque is seen of the left common carotid artery. There is mild plaque als o noted at the carotid bulb and proximal ICA. No significant diameter reduction. ECA is patent. Lef t vertebral artery appears unremarkable. IMPRESSION: 1. No significant diameter reduction to account for the patient's symptoms. CTA [place] with 3-D reconstruction Contrast CTA of the [place] was performed 3-D reconstruction imaging obtained at a separate workstation. Vertebrobasilar system as well as intracranial portions of the internal carotid arteries and their ma sameer tributaries are patent. I do not see evidence for sizable aneurysm or vascular malformation. Pl ease note MRI provides greater sensitivity and specificity. Visualized brain appears grossly unremar kable. IMPRESSION: 1. No significant abnormality.
== END | disposition home or self-care (01) ==
LOC: RADCTMAIN 17:36
PROVIDERS: ATTEND Internal Medicine
DX: I63.9 Cerebral infarction, unspecified (principal)
CPT/HCPCS: 70496; 70498; Q9967

== ENCOUNTER → 2020-03-20 | Outpatient (CLI) | payer OTHER ==
[2020-03-20 15:01] LABS: Basophils % (A) 1 %; Eosinophils # (A) 0.1 k/uL (0-0.7); Eosinophils % (A) 3 %; HCT 42.8 % (39.0-53.0); HGB 13.1 gm/dL (13.0-17.5); Hypochromasia Slight; Lymphocytes # (A) 2.1 k/uL (1.0-4.8); Lymphocytes % (A) 38 %; MCH 25.6 pg (25.0-35.0); MCHC 30.6 g/dL (31.0-37.0); MCV 83.8 fL (80.0-100.0); Mean Platelet Volume 7.5; Monocytes # (A) 0.5 k/uL (0-1.0); Monocytes % (A) 8 %; Neutrophils # (A) 2.7 k/uL (1.3-7.7); Neutrophils % (A) 49 %; Platelet Count 234 k/uL (150-450); RDW 15.5 % (11.5-15.5); WBC 5.6 k/uL (3.8-10.6)
[2020-03-20 20:02] LABS: African American GFR (CKD) 87.4 (60.0-200.0); Albumin 4.2 g/dL (3.80-4.90); Albumin/Globulin Ratio 1.83 (1.60-3.17); Anion Gap 7.7 mmol/L (4.00-12.00); Calcium 9.5 mg/dL (8.7-10.3); Carbon Dioxide 29.3 mmol/L (21.6-31.8); Chol/HDL Ratio 2.14; Globulin 2.3 g/dL (1.6-3.3); LDL Cholesterol,Calculated 23.2 mg/dL (0.0-131.0); Non-African American GFR(CKD) 75.4 (60.0-200.0); Potassium 3.9 mmol/L (3.5-5.5); Total Bilirubin 0.6 mg/dL (0.3-1.2); Total Protein 6.5 g/dL (6.2-8.2); VLDL Calculation 25.8 mg/dL (5.00-40.00)
[2020-03-20 21:30] LABS: Hemoglobin A1C 6.2 % (4.0-6.0)
== END | disposition home or self-care (01) ==
LOC: LABWHC1 12:35
PROVIDERS: ATTEND Internal Medicine
DX: E78.2 Mixed hyperlipidemia (principal); E11.9 Type 2 diabetes mellitus without complications; I10 Essential (primary) hypertension
CPT/HCPCS: 36415; 80053; 80061; 83036; 84443; 85025

== ENCOUNTER → 2020-06-10 | Outpatient (CLI) | payer MEDICAID ==
[2020-06-10 15:25] LABS: Basophils # (A) 0.1 k/uL (0-0.2); Basophils % (A) 1 %; Eosinophils # (A) 0.1 k/uL (0-0.7); Eosinophils % (A) 2 %; HCT 42.4 % (39.0-53.0); HGB 13.2 gm/dL (13.0-17.5); Hypochromasia Slight; Lymphocytes # (A) 2.4 k/uL (1.0-4.8); Lymphocytes % (A) 40 %; MCH 25.5 pg (25.0-35.0); MCHC 31.1 g/dL (31.0-37.0); Mean Platelet Volume 7.2; Monocytes # (A) 0.5 k/uL (0-1.0); Monocytes % (A) 8 %; Neutrophils # (A) 2.8 k/uL (1.3-7.7); Neutrophils % (A) 47 %; Platelet Count 283 k/uL (150-450); RBC 5.17 m/uL (4.30-5.90); RDW 15.1 % (11.5-15.5)
[2020-06-11 00:41] LABS: Hemoglobin A1C 6.4 % (4.0-6.0)
[2020-06-11 04:36] LABS: African American GFR (CKD) 87.4 (60.0-200.0); Albumin 4.3 g/dL (3.80-4.90); Albumin/Globulin Ratio 2.05 (1.60-3.17); Anion Gap 12.6 mmol/L (4.00-12.00); Calcium 9.1 mg/dL (8.7-10.3); Carbon Dioxide 24.4 mmol/L (21.6-31.8); Chol/HDL Ratio 3.02; Globulin 2.1 g/dL (1.6-3.3); LDL Cholesterol,Calculated 58.2 mg/dL (0.0-131.0); Non-African American GFR(CKD) 75.4 (60.0-200.0); Potassium 3.8 mmol/L (3.5-5.5); Prostate Specific Antigen 3.3 ng/mL (0.0-6.5); Total Bilirubin 0.6 mg/dL (0.2-1.2); Total Protein 6.4 g/dL (6.2-8.2); VLDL Calculation 26.8 mg/dL (5.00-40.00)
[2020-06-11 06:07] LABS: Urine Creatinine 186.3 mg/dL
[2020-06-11 07:34] LABS: Folate, Serum 15.7 ng/mL
== END | disposition home or self-care (01) ==
LOC: LABWHC1 14:06
PROVIDERS: ATTEND Internal Medicine
DX: Z00.00 Encounter for general adult medical examination without abnormal findings (principal); N40.0 Benign prostatic hyperplasia without lower urinary tract symptoms; E11.9 Type 2 diabetes mellitus without complications; I25.10 Atherosclerotic heart disease of native coronary artery without angina pectoris; R41.3 Other amnesia
CPT/HCPCS: 36415; 80053; 80061; 82043; 82570; 82607; 82746; 83036; 84153; 84443; 85025

== ENCOUNTER → 2020-09-19 | Outpatient (CLI) | payer MEDICAID ==
[2020-09-19 15:27] LABS: Basophils % (A) 0 %; Eosinophils # (A) 0.1 k/uL (0-0.7); Eosinophils % (A) 3 %; HCT 32.4 % (39.0-53.0); Hypochromasia Slight; Lymphocytes # (A) 1.5 k/uL (1.0-4.8); Lymphocytes % (A) 30 %; MCH 25.6 pg (25.0-35.0); MCHC 30.8 g/dL (31.0-37.0); MCV 83.3 fL (80.0-100.0); Mean Platelet Volume 7.7; Monocytes # (A) 0.3 k/uL (0-1.0); Monocytes % (A) 7 %; Neutrophils # (A) 2.9 k/uL (1.3-7.7); Neutrophils % (A) 58 %; Platelet Count 200 k/uL (150-450); RBC 3.89 m/uL (4.30-5.90); RDW 15.7 % (11.5-15.5); WBC 5.1 k/uL (3.8-10.6)
[2020-09-19 20:49] LABS: African American GFR (CKD) 63.6 (60.0-200.0); Albumin 4.5 g/dL (3.80-4.90); Albumin/Globulin Ratio 1.88 (1.60-3.17); Anion Gap 9.4 mmol/L (4.00-12.00); BUN/Creat Ratio 12.31 Ratio (12.00-20.00); Calcium 9.2 mg/dL (8.7-10.3); Carbon Dioxide 25.6 mmol/L (21.6-31.8); Chol/HDL Ratio 5.09; Globulin 2.4 g/dL (1.6-3.3); LDL Cholesterol,Calculated 112.8 mg/dL (0.0-131.0); Non-African American GFR(CKD) 54.9 (60.0-200.0); Potassium 4.5 mmol/L (3.5-5.5); Total Bilirubin 0.7 mg/dL (0.2-1.2); Total Protein 6.9 g/dL (6.2-8.2); VLDL Calculation 67.2 mg/dL (5.00-40.00)
== END | disposition home or self-care (01) ==
LOC: LABWHC1 14:43
PROVIDERS: ATTEND Internal Medicine
DX: I10 Essential (primary) hypertension (principal); E11.9 Type 2 diabetes mellitus without complications; E78.2 Mixed hyperlipidemia; R56.9 Unspecified convulsions
CPT/HCPCS: 36415; 80053; 80061; 80177; 83036; 84443; 85025

== ENCOUNTER → 2020-09-22 | Outpatient (CLI) | payer MEDICAID ==
--- NOTE | 2020-09-22 23:25 | EEG ---
ELECTROENCEPHALOGRAM REPORT DATE OF SERVICE: 09/22/2020 PREAMBLE: This is a 70-year-old male who had a CVA in July 2019 and had a seizure. The patient was placed on seizure medication and has not had any further seizure-type spells. The patient is being considered to wean off seizure medication. The patient is alert and oriented x4. Patient is currently on Keppra 1000 mg b.i.d. DESCRIPTION: This is a 21-channel routine EEG recording in a patient utilizing 10-20 international system with referential and bipolar montages. Background consists of well developed, well regulated, moderate voltage activity in 9-10 hertz alpha. Background is posterior- dominant and reactive to eye opening and closing. Photic driving response was not seen. Different stages of sleep were not seen. No focal or generalized epileptiform activity was seen. EKG channel showed no arrhythmia. IMPRESSION: This is a normal awake EEG. No focal, lateralized or epileptiform activity was seen. MMODL / IJN: [id number] /
== END | disposition home or self-care (01) ==
LOC: NEUROMAIN 08:16
PROVIDERS: ATTEND Internal Medicine
DX: R56.9 Unspecified convulsions (principal)
CPT/HCPCS: 95816

== ENCOUNTER → 2021-01-16 | Outpatient (CLI) | payer MEDICAID ==
[2021-01-16 17:06] LABS: Basophils # (A) 0.04 X 10*3/uL (0.00-0.10); Basophils % (A) 0.7 %; Eosinophils # (A) 0.17 X 10*3/uL (0.04-0.35); HCT 38.8 % (39.6-50.0); Lymphocytes # (A) 1.91 X 10*3/uL (0.90-5.00); Lymphocytes % (A) 33.4 %; MCH 27.1 pg (27.0-32.0); MCHC 30.9 g/dL (32.0-37.0); MCV 87.8 fL (80.0-97.0); Mean Platelet Volume 11.3 fL (9.5-12.2); Monocytes # (A) 0.67 X 10*3/uL (0.20-1.00); Monocytes % (A) 11.7 %; Neutrophils # (A) 2.91 X 10*3/uL (1.80-7.70); Neutrophils % (A) 50.9 %; Platelet Count 240 X 10*3/uL (140-440); RBC 4.42 X 10*6/uL (4.40-5.60); RDW 15.2 % (11.5-14.5); WBC 5.72 X 10*3/uL (4.50-10.00)
[2021-01-16 21:05] LABS: African American GFR (CKD) 87.4 (60.0-200.0); Anion Gap 9.5 mmol/L (4.00-12.00); Calcium 9.1 mg/dL (8.7-10.3); Carbon Dioxide 26.5 mmol/L (21.6-31.8); Chol/HDL Ratio 3.43; LDL Cholesterol,Calculated 73.6 mg/dL (0.0-131.0); Magnesium 2.1 mg/dL (1.5-2.4); Non-African American GFR(CKD) 75.4 (60.0-200.0); Potassium 3.8 mmol/L (3.5-5.5); Total Bilirubin 0.6 mg/dL (0.2-1.2); VLDL Calculation 23.4 mg/dL (5.00-40.00)
[2021-01-16 22:30] LABS: Urine Creatinine 97.6 mg/dL
== END | disposition home or self-care (01) ==
LOC: LABWHC1 01-15 09:51
PROVIDERS: ATTEND Internal Medicine
DX: I10 Essential (primary) hypertension (principal); I63.49 Cerebral infarction due to embolism of other cerebral artery; E11.9 Type 2 diabetes mellitus without complications; E78.2 Mixed hyperlipidemia
CPT/HCPCS: 36415; 80053; 80061; 80177; 82043; 82570; 83036; 83735; 84443; 85025

== ENCOUNTER → 2021-04-17 | Outpatient (CLI) | payer MEDICAID ==
[2021-04-17 10:17] LABS: Appearance,Urine Clear (Clear); Bilirubin,Urine Negative (Negative); Blood,Urine Negative (Negative); Color,Urine Yellow; Glucose,Urine (UA) Negative (Negative); Ketones,Urine Negative (Negative); Leukocyte Esterase,Urine Negative (Negative); Mucus,Urine Rare /hpf; Nitrite,Urine Negative (Negative); PH, Urine 6.5 (5.0-8.0); Protein,Urine 1+ (Negative); RBC,Urine 1 /hpf (0-5); Specific Gravity,Urine 1.018 (1.001-1.035); Urobilinogen,Urine <2.0 mg/dL (<2.0); WBC,Urine <1 /hpf (0-5)
[2021-04-17 15:13] LABS: Basophils # (A) 0.03 X 10*3/uL (0.00-0.10); Basophils % (A) 0.5 %; Eosinophils # (A) 0.18 X 10*3/uL (0.04-0.35); Eosinophils % (A) 3.1 %; HCT 41.3 % (39.6-50.0); HGB 13.1 g/dL (13.0-17.0); Lymphocytes # (A) 2.26 X 10*3/uL (0.90-5.00); Lymphocytes % (A) 38.8 %; MCH 27.5 pg (27.0-32.0); MCHC 31.7 g/dL (32.0-37.0); MCV 86.8 fL (80.0-97.0); Monocytes # (A) 0.69 X 10*3/uL (0.20-1.00); Monocytes % (A) 11.9 %; Neutrophils # (A) 2.65 X 10*3/uL (1.80-7.70); Neutrophils % (A) 45.5 %; Platelet Count 249 X 10*3/uL (140-440); RBC 4.76 X 10*6/uL (4.40-5.60); RDW 14.4 % (11.5-14.5); WBC 5.82 X 10*3/uL (4.50-10.00)
[2021-04-17 15:53] LABS: Hemoglobin A1C 6.1 % (4.0-6.0)
[2021-04-17 19:24] LABS: African American GFR (CKD) 77.3 (60.0-200.0); Albumin 4.1 g/dL (3.80-4.90); Albumin/Globulin Ratio 1.71 (1.60-3.17); Anion Gap 8.3 mmol/L (4.00-12.00); BUN/Creat Ratio 14.55 Ratio (12.00-20.00); Calcium 9.3 mg/dL (8.7-10.3); Carbon Dioxide 27.7 mmol/L (21.6-31.8); Chol/HDL Ratio 3.97; Globulin 2.4 g/dL (1.6-3.3); LDL Cholesterol,Calculated 73.6 mg/dL (0.0-131.0); Magnesium 2.4 mg/dL (1.5-2.4); Non-African American GFR(CKD) 66.7 (60.0-200.0); Potassium 3.8 mmol/L (3.5-5.5); Total Bilirubin 0.7 mg/dL (0.3-1.2); Total Protein 6.5 g/dL (6.2-8.2); VLDL Calculation 39.4 mg/dL (5.00-40.00)
== END | disposition home or self-care (01) ==
LOC: LABWHC1 09:18
PROVIDERS: ATTEND Internal Medicine
DX: E78.2 Mixed hyperlipidemia (principal); E11.9 Type 2 diabetes mellitus without complications; I10 Essential (primary) hypertension
CPT/HCPCS: 36415; 80053; 80061; 81001; 83036; 83735; 84443; 85025

== ENCOUNTER → 2021-12-10 | Outpatient (CLI) | payer MEDICAID ==
[2021-12-10 18:00] LABS: Basophils # (A) 0.04 X 10*3/uL (0.00-0.10); Basophils % (A) 0.7 %; Eosinophils # (A) 0.13 X 10*3/uL (0.04-0.35); Eosinophils % (A) 2.4 %; HGB 14.2 g/dL (13.0-17.0); Immature Grans, Automated 0.4 %; Lymphocytes # (A) 2.08 X 10*3/uL (0.90-5.00); Lymphocytes % (A) 37.6 %; MCH 27.8 pg (27.0-32.0); MCHC 31.6 g/dL (32.0-37.0); MCV 88.2 fL (80.0-97.0); Mean Platelet Volume 11.2 fL (9.5-12.2); Monocytes # (A) 0.55 X 10*3/uL (0.20-1.00); Monocytes % (A) 9.9 %; NRBC Per 100 WBC 0 /100 WBCS (0.0-0.0); Neutrophils # (A) 2.71 X 10*3/uL (1.80-7.70); Platelet Count 286 X 10*3/uL (140-440); RDW 14.7 % (11.5-14.5); WBC 5.53 X 10*3/uL (4.50-10.00)
[2021-12-10 20:19] LABS: Magnesium 2.5 mg/dL (1.5-2.4)
[2021-12-10 20:49] LABS: Chloride 109 mmol/L (96-109); Glucose 118 mg/dL (70-110); Potassium 3.8 mmol/L (3.5-5.5); Sodium 147 mmol/L (135-145)
[2021-12-10 20:50] LABS: ALT 26 U/L (10-49); AST 20 U/L (14-35); African American GFR (CKD) 69.6 (60.0-200.0); Albumin 4.7 g/dL (3.8-4.9); Albumin/Globulin Ratio 1.88 (1.60-3.17); Alkaline Phosphatase 145 U/L (41-126); Blood Urea Nitrogen 14.4 mg/dL (9.0-27.0); Calcium 9.7 mg/dL (8.7-10.3); Carbon Dioxide 20.8 mmol/L (20.0-27.5); Chol/HDL Ratio 3.24 Ratio; Globulin 2.5 g/dL (1.6-3.3); LDL Cholesterol,Calculated 100.9 mg/dL (0.0-131.0); Non-African American GFR(CKD) 60.1 (60.0-200.0); Total Protein 7.2 g/dL (6.2-8.2)
== END | disposition home or self-care (01) ==
LOC: LABWHC1 11:31
PROVIDERS: ATTEND Internal Medicine
DX: I10 Essential (primary) hypertension (principal); N40.0 Benign prostatic hyperplasia without lower urinary tract symptoms; E11.9 Type 2 diabetes mellitus without complications; E78.2 Mixed hyperlipidemia
CPT/HCPCS: 36415; 80053; 80061; 82043; 82570; 83036; 83735; 84153; 84439; 84443; 85025

== ENCOUNTER → 2021-12-29 | Outpatient (CLI) | payer MEDICARE, MEDICAID ==
--- NOTE | 2021-12-29 08:57 | US ---
EXAMINATION TYPE: US carotid duplex BILAT DATE OF EXAM: 12/29/2021 COMPARISON: NONE CLINICAL HISTORY: I63.49 CVA DUE TO EMBOLSIM OF CEREBRAL ARTERY. EXAM MEASUREMENTS: RIGHT: Peak Systolic Velocity (PSV) cm/sec ----- Right CCA: 65.1 ----- Right ICA: 65.3 ----- Right ECA: 79.0 ICA/CCA ratio: 1.0 RIGHT: End Diastole cm/sec ----- Right CCA: 14.5 ----- Right ICA: 15.6 ----- Right ECA: 14.8 LEFT: Peak Systolic Velocity (PSV) cm/sec ----- Left CCA: 63.1 ----- Left ICA: 51.7 ----- Left ECA: 76.8 ICA/CCA ratio: 0.8 LEFT: End Diastole cm/sec ----- Left CCA: 16.0 ----- Left ICA: 16.6 ----- Left ECA: 12.0 VERTEBRALS (direction of flow): Right Vertebral: Antegrade Left Vertebral: Antegrade Rhythm: Arrhythmia Mild atherosclerotic changes with no significant velocity increases seen bilaterally. IMPRESSION: Atheromatous plaquing without significant flow-limiting stenosis. Criteria for Assigning % of Stenosis / Diameter reduction (Estimation based on the indirect measurements of the internal carotid artery velocities (ICA PSV). 1. Normal (no stenosis)=ICA PSV < 125 cm/s: ratio < 2.0: ICA EDV<40 cm/s. 2. Less than 50% stenosis=ICA PSV < 125 cm/s: ratio < 2.0: ICA EDV<40 cm/s. 3. 50 to 69% stenosis=ICA PSV of 125 to 230 cm/s: ration 2.0 ? 4.0: ICA EDV 40-100 cm/s. 4. Greater than 70% stenosis to near occlusion= ICA PSV > 230 cm/s: ratio > 4.0: ICA EDV > 100 cm/s. 5. Near occlusion= ICA PSV velocities may be low or undetectable: variable ratio and ICA EDV. 6. Total occlusion=unable to detect flow.
--- NOTE | 2021-12-29 12:41 | P.STRESS ---
- Stress Test Note Stress Test Results/Findings: Exam Performed: NM stress cardiolite complete Exam Date: 12/29/21 Reason for Exam: CAD AND CVA HX Height: 6 ft Weight: 92.533 kg Protocol: CARDIOLITE STRESS TEST Stage: 2 Duration of Exercise: 6:00 Resting Heart Rate: 77 Resting Blood Pressure: 149/90 Maximum Achieved Heart Rate: 139 Maximum Achieved Blood Pressure: 213/101 85% PMHR: 126 100% PMHR: 148 METS: 7.1 Technologist Comment: Stress Test Results/Findings: This is a 71-year-old gentleman being evaluated for symptoms of chest pain. Has history of hypertension, CVA, hypercholesterolemia and family history of ischemic heart disease. Stress data: Baseline EKG showed sinus rhythm with the occasional PVCs. Blood pressure at rest is 149/90, pulse rate of 77. Patient walked on the Jose protocol for 6 minutes achieving a maximum rate of 139 with a blood pressure of 203/101. EKGs taken during and after x-ray did not reveal any significant changes from the baseline. Patient did not experience any chest pain. Final impression: #1. Negative stress test #2. Patient did not express any chest pain. #3. Report on the nuclear images to be provided by the radiologist
--- NOTE | 2021-12-29 16:58 | NM ---
EXAMINATION TYPE: NM stress cardiolite complete DATE OF EXAM: 12/29/2021 COMPARISON: NONE HISTORY: Chest pain TECHNIQUE: After the intravenous administration of 10.3 mCi Tc 99m Sestamibi - Cardiolite resting SP ECT images acquired 50 minutes post injection. At peak stress 24.8 mCi Tc 99m Sestamibi - Stress images obtained 10 minutes post injection . Patient achieved 94% of predicted maximum heart rate. The patient was stressed on a treadmill with Jose protocol. FINDINGS: No fixed defects are evident on SPECT imaging. Polar maps suggest a lateral wall small defect midport ion on stress images. No reversibility is evident. No reversible stress defects on Spect images Wall motion is normal Ejection fraction is calculated to be 61 %. IMPRESSION: 1. No stress-induced ischemic changes.
== END | disposition home or self-care (01) ==
LOC: RADUSWWP 07:44
PROVIDERS: ATTEND Internal Medicine
DX: I65.23 Occlusion and stenosis of bilateral carotid arteries (principal); I25.10 Atherosclerotic heart disease of native coronary artery without angina pectoris
CPT/HCPCS: 93017; 93880; 78452; A9500

== ENCOUNTER → 2022-03-17 | Outpatient (CLI) | payer MEDICARE ==
[2022-03-17 14:29] LABS: Appearance,Urine Clear (Clear); Basophils # (A) 0.03 X 10*3/uL (0.00-0.10); Basophils % (A) 0.6 %; Bilirubin,Urine Negative (Negative); Blood,Urine Negative (Negative); Color,Urine Yellow (Yellow); Eosinophils # (A) 0.15 X 10*3/uL (0.04-0.35); HCT 40.6 % (39.6-50.0); HGB 13.4 g/dL (13.0-17.0); Immature Grans, Automated 0.4 %; Ketones,Urine Negative (Negative); Lymphocytes # (A) 1.85 X 10*3/uL (0.90-5.00); Lymphocytes % (A) 37.1 %; MCH 28.3 pg (27.0-32.0); MCV 85.7 fL (80.0-97.0); Mean Platelet Volume 11.3 fL (9.5-12.2); Monocytes # (A) 0.51 X 10*3/uL (0.20-1.00); Monocytes % (A) 10.2 %; NRBC Per 100 WBC 0 /100 WBCS (0.0-0.0); Neutrophils # (A) 2.42 X 10*3/uL (1.80-7.70); Neutrophils % (A) 48.7 %; Nitrite,Urine Negative (Negative); PH, Urine 6.5 (5.0-8.0); Platelet Count 245 X 10*3/uL (140-440); RBC 4.74 X 10*6/uL (4.40-5.60); RDW 14.4 % (11.5-14.5); WBC 4.98 X 10*3/uL (4.50-10.00)
[2022-03-17 14:36] LABS: Bacteria,Urine None Seen /HPF (None Seen)
[2022-03-17 14:48] LABS: ALT 23 U/L (10-49); AST 17 U/L (14-35); African American GFR (CKD) 76.8 (60.0-200.0); Albumin 4.2 g/dL (3.8-4.9); Albumin/Globulin Ratio 1.75 (1.60-3.17); Alkaline Phosphatase 131 U/L (41-126); BUN/Creat Ratio 12.91 Ratio (12.00-20.00); Blood Urea Nitrogen 14.2 mg/dL (9.0-27.0); Calcium 9.4 mg/dL (8.7-10.3); Carbon Dioxide 26.9 mmol/L (20.0-27.5); Chloride 106 mmol/L (96-109); Globulin 2.4 g/dL (1.6-3.3); Glucose 125 mg/dL (70-110); LDL Cholesterol,Calculated 109.8 mg/dL (0.0-131.0); Magnesium 2.2 mg/dL (1.5-2.4); Non-African American GFR(CKD) 66.2 (60.0-200.0); Potassium 3.7 mmol/L (3.5-5.5); Sodium 143 mmol/L (135-145); Total Protein 6.6 g/dL (6.2-8.2)
== END | disposition home or self-care (01) ==
LOC: LABWHC1 09:39
PROVIDERS: ATTEND Internal Medicine
DX: I10 Essential (primary) hypertension (principal); R56.9 Unspecified convulsions; E11.9 Type 2 diabetes mellitus without complications; I48.0 Paroxysmal atrial fibrillation; E78.2 Mixed hyperlipidemia
CPT/HCPCS: 36415; 80053; 80061; 80177; 81001; 83036; 83735; 84439; 84443; 85025

== ENCOUNTER → 2022-06-18 | Outpatient (CLI) | payer MEDICARE ==
[2022-06-18 14:17] LABS: Basophils # (A) 0.03 X 10*3/uL (0.00-0.10); Basophils % (A) 0.5 %; Eosinophils # (A) 0.15 X 10*3/uL (0.04-0.35); Eosinophils % (A) 2.3 %; HCT 42.7 % (39.6-50.0); HGB 13.6 g/dL (13.0-17.0); Immature Grans, Automated 0.3 %; Lymphocytes # (A) 1.63 X 10*3/uL (0.90-5.00); Lymphocytes % (A) 25.2 %; MCH 27.8 pg (27.0-32.0); MCHC 31.9 g/dL (32.0-37.0); MCV 87.3 fL (80.0-97.0); Mean Platelet Volume 11.3 fL (9.5-12.2); Monocytes # (A) 0.65 X 10*3/uL (0.20-1.00); NRBC Per 100 WBC 0 /100 WBCS (0.0-0.0); Neutrophils # (A) 3.99 X 10*3/uL (1.80-7.70); Neutrophils % (A) 61.7 %; Platelet Count 231 X 10*3/uL (140-440); RBC 4.89 X 10*6/uL (4.40-5.60); RDW 14.4 % (11.5-14.5); WBC 6.47 X 10*3/uL (4.50-10.00)
[2022-06-18 15:08] LABS: ALT 23 U/L (10-49); AST 19 U/L (14-35); African American GFR (CKD) 72.8 (60.0-200.0); Albumin/Globulin Ratio 1.67 (1.60-3.17); Alkaline Phosphatase 150 U/L (41-126); BUN/Creat Ratio 11.91 Ratio (12.00-20.00); Blood Urea Nitrogen 13.7 mg/dL (9.0-27.0); Calcium 9.3 mg/dL (8.7-10.3); Chloride 108 mmol/L (96-109); Chol/HDL Ratio 4.28 Ratio; Globulin 2.4 g/dL (1.6-3.3); Glucose 117 mg/dL (70-110); LDL Cholesterol,Calculated 111.7 mg/dL (0.0-131.0); Magnesium 2.1 mg/dL (1.5-2.4); Non-African American GFR(CKD) 62.8 (60.0-200.0); Potassium 3.9 mmol/L (3.5-5.5); Sodium 146 mmol/L (135-145); Total Protein 6.5 g/dL (6.2-8.2)
== END | disposition home or self-care (01) ==
LOC: LABWHC1 08:44
PROVIDERS: ATTEND Internal Medicine
DX: I10 Essential (primary) hypertension (principal); I48.0 Paroxysmal atrial fibrillation; E11.9 Type 2 diabetes mellitus without complications; E78.2 Mixed hyperlipidemia
CPT/HCPCS: 36415; 80053; 80061; 82043; 82570; 83036; 83735; 84439; 84443; 85025

== ENCOUNTER → 2022-08-19 | Outpatient (CLI) | payer OTHER ==
--- NOTE | 2022-08-20 06:45 | XR ---
EXAMINATION TYPE: XR chest 2V DATE OF EXAM: 08/19/2022 COMPARISON: Chest x-ray July 14, 2019 HISTORY: Acute cough. TECHNIQUE: Frontal and lateral views of the chest are obtained. FINDINGS: There is no suspicious focal air space opacity, pleural effusion, or pneumothorax seen. T he cardiac silhouette size is stable and within normal limits. The osseous structures are intact. IMPRESSION: No acute pulmonary process. No significant change from prior.
== END | disposition home or self-care (01) ==
LOC: RADXRMAIN 16:05
PROVIDERS: ATTEND Internal Medicine
DX: R05.1 Acute cough (principal)
CPT/HCPCS: 71046

== ENCOUNTER → 2022-09-23 | Outpatient (CLI) | payer OTHER ==
[2022-09-23 18:42] LABS: Basophils # (A) 0.02 X 10*3/uL (0.00-0.10); Basophils % (A) 0.4 %; Eosinophils # (A) 0.18 X 10*3/uL (0.04-0.35); Eosinophils % (A) 3.8 %; HCT 44.3 % (39.6-50.0); Immature Grans, Automated 0.4 %; Lymphocytes # (A) 1.85 X 10*3/uL (0.90-5.00); Lymphocytes % (A) 39.2 %; MCH 28.4 pg (27.0-32.0); MCHC 31.6 g/dL (32.0-37.0); MCV 89.9 fL (80.0-97.0); Mean Platelet Volume 11.4 fL (9.5-12.2); Monocytes # (A) 0.47 X 10*3/uL (0.20-1.00); NRBC Per 100 WBC 0 /100 WBCS (0.0-0.0); Neutrophils # (A) 2.18 X 10*3/uL (1.80-7.70); Neutrophils % (A) 46.2 %; Platelet Count 229 X 10*3/uL (140-440); RBC 4.93 X 10*6/uL (4.40-5.60); RDW 14.1 % (11.5-14.5); WBC 4.72 X 10*3/uL (4.50-10.00)
[2022-09-23 19:14] LABS: ALT 26 U/L (10-49); AST 18 U/L (14-35); African American GFR (CKD) 77.6 (60.0-200.0); Albumin 4.3 g/dL (3.8-4.9); Albumin/Globulin Ratio 1.73 (1.60-3.17); Alkaline Phosphatase 142 U/L (41-126); Blood Urea Nitrogen 14.5 mg/dL (9.0-27.0); Calcium 9.6 mg/dL (8.7-10.3); Carbon Dioxide 27.3 mmol/L (20.0-27.5); Chloride 104 mmol/L (96-109); Chol/HDL Ratio 3.87 Ratio; Globulin 2.5 g/dL (1.6-3.3); Glucose 109 mg/dL (70-110); LDL Cholesterol,Calculated 105.1 mg/dL (0.0-131.0); Magnesium 2.1 mg/dL (1.5-2.4); Sodium 143 mmol/L (135-145); Total Protein 6.8 g/dL (6.2-8.2)
== END | disposition home or self-care (01) ==
LOC: LABWHC1 10:54
PROVIDERS: ATTEND Internal Medicine
DX: I10 Essential (primary) hypertension (principal); E78.2 Mixed hyperlipidemia; E11.9 Type 2 diabetes mellitus without complications; R56.9 Unspecified convulsions
CPT/HCPCS: 36415; 80053; 80061; 80177; 82043; 82570; 83036; 83735; 84439; 84443; 85025

== ENCOUNTER → 2024-08-16 | Outpatient (CLI) | payer OTHER ==
--- NOTE | 2024-08-16 17:55 | XR ---
EXAMINATION TYPE: XR chest 2V DATE OF EXAM: 08/16/2024 1:22 PM COMPARISON: 08/19/2022 CLINICAL INDICATION: Male, 74 years old with history of R05.1 ACUTE COUGH, , TECHNIQUE: Frontal and lateral views FINDINGS: Heart upper limits of normal in size. The aorta and pulmonary vasculature are within normal limits. L ungs and pleural spaces are clear. IMPRESSION: No acute cardiopulmonary process. [facility], , 08/16/2024 5:52 PM
== END | disposition home or self-care (01) ==
LOC: RADXRMAIN 13:04
PROVIDERS: ATTEND Internal Medicine
DX: R05.1 Acute cough (principal)
CPT/HCPCS: 71046

== ENCOUNTER 2025-01-12 08:08 | Emergency (ER) | payer OTHER ==
[2025-01-12 08:12] VITALS: RESP 18
--- NOTE | 2025-01-12 08:22 | ED ---
Extremity Problem HPI - General Chief complaint: Extremity Problem,Nontraumatic Stated complaint: right knee swelling Time Seen by Provider: 01/12/25 08:21 Source: patient, family (), RN notes reviewed, old records reviewed Mode of arrival: ambulatory Limitations: no limitations - History of Present Illness Initial comments: 74-year-old male presented the ER for evaluation of right knee pain. Patient reports over the past couple of weeks he has been having a sharp shooting pain noted to his right knee worse with ambulation. He states he woke up around 6 AM with intense pain to his right knee. He also noted it to be swollen. He reports limited range of motion given swelling. He has not taken anything for symptoms at this time. He denies any calf tenderness, history of blood clots, recent travel or smoking history. Patient is on blood thinners as he has had cardiac stent placement in the past. He denies any shortness of breath, chest pain, dizziness or lightheadedness. Denies a history of gout. Denies any fevers or chills. No known injuries or trauma to right knee. - Related Data Home Medications Medication Instructions Recorded Confirmed Multivitamins, Thera [Multivitamin 1 tab PO DAILY 01/06/15 07/14/19 (formulary)] Ubidecarenone [Co Q-10] 100 mg PO DAILY 01/06/15 07/14/19 amLODIPine [Norvasc] 10 mg PO DAILY 01/09/19 07/14/19 Magnesium Oxide [Jo] 500 mg PO DAILY 07/14/19 07/14/19 Rivaroxaban [Xarelto] 15 mg PO AC-SUPPER 07/14/19 07/14/19 Previous Rx's Medication Instructions Recorded Atorvastatin [Lipitor] 80 mg PO HS #30 tab 12/14/18 Nitroglycerin Sl Tabs [Nitrostat] 0.4 mg SUBLINGUAL Q5M PRN tab 12/14/18 Metoprolol Succinate (ER) [Toprol 25 mg PO DAILY #90 tab.er.24h 01/12/19 XL] Clopidogrel [Plavix] 75 mg PO DAILY tab 01/13/19 Allergies Allergy/AdvReac Type Severity Reaction Status Date / Time Iodinated Contrast Media Allergy Rash/Hives Verified 01/12/25 08:12 [Iodinated Contrast- Oral and IV Dye] povidone-iodine Allergy Rash/Hives Verified 01/12/25 08:12 [From Betadine] lactose AdvReac LOOSE Verified 01/12/25 08:12 STOOLS AND BLOATING steroids AdvReac increased Uncoded 01/12/25 08:12 BP Review of Systems ROS Statement: Those systems with pertinent positive or pertinent negative responses have been documented in the HPI. ROS Other: All systems not noted in ROS Statement are negative. Past Medical History Past Medical History: CVA/TIA, GERD/Reflux, Hyperlipidemia, Hypertension, Osteoarthritis (OA) Additional Past Medical History / Comment(s): hx glaucoma-had trabeculoplasty laser sx,CVA 2010, ,MURMUR,LACTOSE INTOLERANT. History of Any Multi-Drug Resistant Organisms: None Reported Past Surgical History: Heart Catheterization, Heart Catheterization With Stent, Hernia Repair, Orthopedic Surgery Additional Past Surgical History / Comment(s): trabeculoplasty for glaucoma, lt inguinal hernia repair, rt ankle orif, bunionectomy, lt WRIST sx HAD A PEICE OF BONE REMOVED., CHASITY knee arthrosocpy, rt rotator cuff, RT KNEE MENISCUS REPAIR. right lower lumbar. 01/12/2019-stent x2 CIRC Past Anesthesia/Blood Transfusion Reactions: Postoperative Nausea & Vomiting (PONV) Additional Past Anesthesia/Blood Transfusion Reaction / Comment(s): after hernia sx had hives not sure from what. Date of Last Stent Placement:: 01/12/2019 Past Psychological History: No Psychological Hx Reported Smoking Status: Never smoker Past Alcohol Use History: None Reported Past Drug Use History: None Reported - Past Family History Brother(s) Family Medical History: Cancer Additional Family Medical History / Comment(s): 1 brother had prostate cancer and one had oral cancer. Father Family Medical History: Hypertension, Myocardial Infarction (ID), Renal Disease Additional Family Medical History / Comment(s): FROM KIDNEY FAILURE Mother Family Medical History: Coronary Artery Disease (CAD), Diabetes Mellitus Additional Family Medical History / Comment(s): QUAD BYPASS General Exam Limitations: no limitations General appearance: alert, in no apparent distress Respiratory exam: Present: normal lung sounds bilaterally. Absent: respiratory distress, wheezes, rales, rhonchi, stridor Cardiovascular Exam: Present: regular rate, normal rhythm, normal heart sounds. Absent: systolic murmur, diastolic murmur, rubs, gallop, clicks Extremities exam: Present: normal capillary refill (2+ DP pulse right), other (Joint effusion noted to right knee. Limited range of motion given swelling. Extensor mechanism intact. Joint is not erythematous or warm to touch) Neurological exam: Present: alert, oriented X3, CN II-XII intact Skin exam: Present: warm, dry, intact, normal color. Absent: rash Course Vital Signs 01/12/25 01/12/25 08:09 09:26 Temperature 97 F L 97.9 F Pulse Rate 61 63 Respiratory 18 18 Rate Blood Pressure 129/83 124/86 O2 Sat by Pulse 100 100 Oximetry Medical Decision Making - Medical Decision Making Was pt. sent in by a medical professional or institution (, PA, MANAGER OF BROADCAST CONTENT, urgent care, hospital, or detention...) When possible be specific @ -No Did you speak to anyone other than the patient for history (EMS, parent, family, police, friend...)? What history was obtained from this source @ -Patient's , at bedside, aiding in HPI and past medical history. Did you review nursing and triage notes (agree or disagree)? Why? @ -I reviewed and agree with nursing and triage notes Were old charts reviewed (outside hosp., previous admission, EMS record, old EKG, old radiological studies, urgent care reports/EKG's, detention records)? Report findings @ -No old charts were reviewed Differential Diagnosis (chest pain, altered mental status, abdominal pain women, abdominal pain men, vaginal bleeding, weakness, fever, dyspnea, syncope, headache, dizziness, GI bleed, back pain, seizure, CVA, palpatations, mental health, musculoskeletal)? @ -[Differential Musculoskeletal: Muscular strain, contusion, ligament sprain, fracture, arthritis, septic arthritis, bursitis, cellulitis, muscle spasm, nerve compression, DVT, arterial occlusion, herpes zoster, electrolyte abnormality, tumor.... This is not meant to be in all inclusive list EKG interpreted by me (3pts min.). @ -None done X-rays interpreted by me (1pt min.). @ -Right knee x-ray interpreted by me negative for acute fractures or dislocations. Osteoarthritis and joint effusion. CT interpreted by me (1pt min.). @ -None done U/S interpreted by me (1pt. min.). @ -None done What testing was considered but not performed or refused? (CT, X-rays, U/S, labs)? Why? @ -None What meds were considered but not given or refused? Why? @ -None Did you discuss the management of the patient with other professionals (yael leal i.e., Dr., PA, MANAGER OF BROADCAST CONTENT, lab, RT, psych nurse, social media assistant, hotel recreational facilities manager, teacher, chief commercial officer, foster care case manager)? Give summary @ -No Was smoking cessation discussed for >3mins.? @ -No Was critical care preformed (if so, how long)? @ -No Were there social determinants of health that impacted care today? How? (Homelessness, low income, unemployed, alcoholism, drug addiction, transportation, low edu. Level, literacy, decrease access to med. care, [place] [facility], rehab)? @ -No Was there de-escalation of care discussed even if they declined (Discuss DNR or withdrawal of care, Hospice)? DNR status @ -No What co-morbidities impacted this encounter? (DM, HTN, Smoking, COPD, CAD, Cancer, CVA, ARF, Chemo, Hep., AIDS, mental health diagnosis, sleep apnea, morbid obesity)? @ -Patient is on Xarelto given cardiac stents. Was patient admitted / discharged? Hospital course, mention meds given and route, prescriptions, significant lab abnormalities, going to OR and other pertinent info. @ -Discharge. 74-year-old male presenting the ER for evaluation of right knee pain and swelling. Vitals within acceptable limits. Patient in no signs of distress nontoxic-appearing. There is a moderate to large right knee effusion noted on exam. This is limiting active flexion of the knee. Patient is neurovascularly intact. There are no overlying skin changes. No calf tenderness or focal bony tenderness. X-rays obtained showing no acute fractures or dislocations. Osteoarthritis is noted with a large joint effusion. Patient provided Tylenol for pain control in the emergency department. Upon ree valuation, patient resting comfortably on stretcher watching program on cell phone no signs of acute distress. Patient and patient's , bedside, educated on x-ray findings. Patient will be placed in an [place] wrap and provided crutches. I advised rest, elevations, ice, compression and [id number] Tylenol for pain control. Strict return parameters discussed. Patient discharged in stable condition with follow-up to orthopedics and PCP, orthopedics referral provided. Patient verbally expressed understanding and agreement with care plan. Case discussed with ED attending, Dr. Christina. Undiagnosed new problem with uncertain prognosis? @ -No Drug Therapy requiring intensive monitoring for toxicity (Heparin, Nitro, Insulin, Cardizem)? @ -No Were any procedures done? @ -No Diagnosis/symptom? @ -Knee effusion Acute, or Chronic, or Acute on Chronic? @ -Acute Uncomplicated (without systemic symptoms) or Complicated (systemic symptoms)? @ -Uncomplicated Side effects of treatment? @ -No Exacerbation, Progression, or Severe Exacerbation? @ -No Poses a threat to life or bodily function? How? (Chest pain, [place], ID, pneumonia, PE, COPD, DKA, ARF, appy, cholecystitis, CVA, Diverticulitis, Homicidal, Suicidal, threat to staff... and all critical care pts) @ -Unlikely Disposition Clinical Impression: Knee effusion Disposition: HOME SELF-CARE Condition: Stable Instructions (If sedation given, give patient instructions): Osteoarthritis (DC), Swollen Knee Joint (ED) Additional Instructions: Continue to rest, ice, elevate and use compression. Continue using [id number] Tylenol for pain control. Follow-up with orthopedics for further evaluation. Return to the ER for any new or worsening concerns Is patient prescribed a controlled substance at d/c from ED?: No Referrals: Randy Lincoln MD [Primary Care Provider] - 1-2 days Ruddy Peña MD [STAFF PHYSICIAN] - 1-2 days Time of Disposition: 09:13
[2025-01-12] MEDS: ACETAMINOPHEN TAB 325 MG TAB PO STA (08:32)
--- NOTE | 2025-01-12 08:57 | XR ---
EXAMINATION TYPE: XR knee complete RT DATE OF EXAM: 01/12/2025 CLINICAL INDICATION: Male, 74 years old with history of knee pain/swelling, pain TECHNIQUE: Frontal, lateral, and oblique views of the knee were obtained. COMPARISON: None. FINDINGS: There is no acute fracture/dislocation evident in right knee. Moderate to severe narrowing and spurring patellofemoral and medial tibiofemoral compartment is seen. Moderate to large sized pete nt effusion noted. Posterior arterial vascular calcification is seen. IMPRESSION: As above. [facility], , 01/12/2025 8:55 AM
[2025-01-12 09:27] VITALS: BP 124/86; PULSE 63; TEMP 97.9
== END 2025-01-12 09:42 | disposition home or self-care (01) ==
LOC: EC 08:08
DX: M25.461 Effusion, right knee (principal); Z91.041 Radiographic dye allergy status; Z91.011 Allergy to milk products; Z88.8 Allergy status to other drugs, medicaments and biological substances; Z79.01 Long term (current) use of anticoagulants
CPT/HCPCS: 99283